=== PATIENT | male | born 1945 | race Caucasian/White ===

== ENCOUNTER 2017-05-30 13:53 | Inpatient (IN) | payer MEDICARE ==
[~2017-05-30 13:53] MED LIST: Bacitracin Zinc Ointment 30 gm TUBE ONE; Dexamethasone 20 MG/5 ML VIAL ONE; Glycopyrrolate 0.2 MG/ML 5 ML SYRINGE ONE; Lidocaine 1% PF 5 ML VIAL ONE; Lidocaine 1% w/Epinephrine 1:200K 30 ML VIAL ONE; Ondansetron HCl/PF 4 MG/2 ML Vial ONE; PROPOFOL 200 MG/20 ML VIAL ONE; Succinylcholine Chloride 20 MG/ML 10 ml SYRINGE FS ONE; Thrombin 5000 UNITS/5 ML VIAL ONE; ePHEDrine/0.9% NaCl/PF SYRINGE 50 mg/10 ml ONE
[2017-05-30] MEDS ORDERED: Fentanyl 100 MCG/2 ML VIAL ONE (14:17)
[2017-05-30] MEDS ORDERED: Morphine Sulfate 2 MG/ML SYRINGE SLOW IVP PRN (14:23)
[2017-05-30] MEDS ORDERED: Meperidine HCl/PF 25 MG/ML VIAL SLOW IVP PRN (14:23)
[2017-05-30] MEDS ORDERED: Promethazine HCl 25 MG/ML VIAL SLOW IVP PRN (14:23)
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
[2017-05-30] MEDS ORDERED: ePHEDrine/0.9% NaCl/PF SYRINGE 50 mg/10 ml ONE (15:20)
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
[2017-05-30 18:28] VITALS: BMI 35.4
[2017-05-30] MEDS ORDERED: Acetaminophen 325 MG TAB PO PRN (19:00)
[2017-05-30] MEDS ORDERED: Ondansetron HCl/PF 4 MG/2 ML Vial IVP PRN (19:00)
[2017-05-30] MEDS ORDERED: Dextrose 5% in Water 1,000 ML IV PRN (19:00)
[2017-05-30] MEDS ORDERED: Dextrose 50% Abboject 50 ML SYRINGE SLOW IVP PRN (19:00)
[2017-05-30] MEDS ORDERED: Docusate 100 MG CAP PO PRN (19:00)
[2017-05-30] MEDS ORDERED: diphenhydrAMINE 50 MG/ML VIAL IVP PRN (19:00)
[2017-05-30] MEDS ORDERED: Ondansetron ODT 4 MG TAB PO PRN (19:00)
[2017-05-30] MEDS ORDERED: Morphine 4 MG/ML VIAL SLOW IVP PRN ×2 (19:15)
[2017-05-30] MEDS: Sodium Chloride 0.9% 1,000 ML IV SCH (19:40)
[2017-05-30] MEDS: CEFAZOLIN/Water 2 GM/20 ML SYRINGE SLOW IVP SCH (20:34)
[2017-05-30] MEDS: hydrALAZINE 20 MG/ML VIAL SLOW IVP PRN (20:38)
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
[2017-05-30] MEDS ORDERED: Famotidine 20 MG TAB PO SCH (21:00)
[2017-05-30] MEDS ORDERED: Famotidine/PF 20 mg/2ml Vial SLOW IVP SCH (21:00)
[2017-05-30] MEDS ORDERED: Famotidine 40 MG/4 ML VIAL SLOW IVP SCH (21:00)
[2017-05-30] MEDS ORDERED: Morphine 2 MG/ML SYRINGE SLOW IVP PRN (21:22)
[2017-05-30] MEDS ORDERED: niCARdipine 20MG In NaCl 20 MG/200 ML BAG IVPB SCH (21:30)
[2017-05-30] MEDS ORDERED: Labetalol HCl 100 MG/20 ML VIAL SLOW IVP SCH (21:30)
[2017-05-31] MEDS: HYDROcodone/Acetaminophen 10/325 mg Tablet PO PRN ×3 (00:20→20:34)
[2017-05-31] MEDS: CEFAZOLIN/Water 2 GM/20 ML SYRINGE SLOW IVP SCH ×2 (04:04→11:43)
[2017-05-31 04:42] LABS: #Lymphocytes 2.3 thou/uL (1.20-3.40); #Monocytes 0.8 thou/uL (0.11-0.59); #Neutrophils 12.7 thou/uL (1.40-6.50); %Basophils 0.2 % (0.0-1.0); %Eosinophils 0.1 % (0.0-10.0); %Lymphocytes 14.8 % (21.0-51.0); %Monocytes 4.8 % (0.0-10.0); %Neutrophils 80.1 % (42.0-75.0); Hemoglobin 14.9 g/dL (14.0-18.0); Mean Corpuscular HGB CONC 34.2 g/dL (32.0-36.0); Mean Corpuscular Hemoglobin 31.4 pg (27.0-31.0); Mean Corpuscular Volume 91.9 fl (80.0-94.0); Mean Platelet Volume 7.5 fL (7.4-10.4); Platelet Count 233 thou/uL (130-400); RBC Distribution Width 11.6 % (11.5-14.5); Red Blood Cell (RBC) Count 4.74 mill/uL (4.70-6.10); White Blood Cell (WBC) Count 15.8 thou/uL (4.8-10.8)
[2017-05-31 04:57] LABS: Anion Gap 15 mmol/L (10-20); BUN (Urea Nitrogen) 13 mg/dL (8.4-25.7); Calc. Creatinine Clearance 114 mL/min (70-130); Calcium 9.4 mg/dL (7.8-10.44); Carbon Dioxide 21 mmol/L (23-31); Chloride 105 mmol/L (98-107); Estimated GFR-MDRD 77; Glucose 128 mg/dL (80-115); Magnesium 1.9 mg/dL (1.6-2.6); Phosphorus 3.5 mg/dL (2.3-4.7); Potassium 4.2 mmol/L (3.5-5.1); Sodium 137 mmol/L (136-145)
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
[2017-05-31] MEDS: Sodium Chloride 0.9% 1,000 ML IV SCH (08:18)
[2017-05-31] MEDS: Metoprolol Tartrate 25 MG TAB PO SCH ×2 (08:18→20:33)
[2017-05-31] MEDS ORDERED: Amlodipine 5 MG TAB PO SCH ×2 (09:00→10:30)
[2017-05-31] MEDS ORDERED: Famotidine 40 MG/4 ML VIAL SLOW IVP SCH (09:00)
--- NOTE | 2017-05-31 11:01 | PRG ---
DATE OF SERVICE: 05/31/2017 SUBJECTIVE: Mr. Woodard is 1 day status post feliz hole evacuation of a large subdural hematoma. Cli nically, he is neurologically intact. The plan will be to remove the subdural drain this morning and recommend transfer to the floor. If he is mobilizing well over the course of the day, he can be dis missed as early as later this afternoon. Our plan will be to follow up with him in the clinic in a 2 weeks' time frame.
--- NOTE | 2017-05-31 11:58 | PRG ---
DATE OF SERVICE: 05/31/2017 SUBJECTIVE: This is a 71-year-old man who is postoperative day #1, status post feliz hole evacuation of large left convexity subdural hematoma. The patient is awake and alert. His Alena coma scale h as remained at 15. He moves all extremities and answers questions appropriately. He reports adequat e pain control. He has had adequate urinary output overnight. OBJECTIVE: VITAL SIGNS: Currently includes blood pressure 156/75, pulse is 60, respiratory rate is 15, temperat ure is 98.0 degrees Fahrenheit, oxygen saturation is 98% on room air. HEENT: Reveals a scalp dressing which is intact, clean, and dry. Pupils are equal, round, and react ania to light and accommodation. NECK: He has no jugular venous distention noted. HEART: Reveals regular rate and rhythm, no murmurs or gallops auscultated. CHEST: Lungs are clear to auscultation bilaterally. His breathing is regular and unlabored. ABDOMEN: Soft, nontender, nondistended. EXTREMITIES: Reveals 2+ radial and pedal pulses bilaterally. No ankle edema is present. NEUROLOGIC: Reveals no focal deficits present. LABORATORY DATA: Pertinent laboratory findings today includes a CBC with 15,800 white blood cells, h emoglobin 14.9, hematocrit 43.5, platelet count is 233,000. Metabolic profile: Sodium 137, potassiu m is 4.2, chloride is 105, bicarbonate is 21, BUN 13, creatinine 0.97, glucose 128. Magnesium 1.9, p hosphorus is 3.5. IMPRESSION: Postoperative day #1, status post feliz hole evacuation of large left subdural hematoma, patient is neurologically normal. PLAN: Judge catheter will be discontinued. The patient will be saline locked and diet initiated. Activities will be initiated per physical and occupational therapy. The patient will be evaluated by Speech Pathology for cognitive evaluation. Should evaluation by PT, OT and Speech Pathology so indicate, PMNR will see the patient for possible inpatient rehabilitation. I have no reasons to think that this will be the case. Above findings and plan have been discussed with the patient who indicates understanding of the infor mation given. I have answered his questions.
--- NOTE | 2017-05-31 13:33 | PRG ---
DATE OF SERVICE: 05/31/2017 SUBJECTIVE: Mr. Woodard is now postop day #1 following a left-sided frontal feliz hole and subdural e vacuation. He looks to be doing extraordinarily well, has eaten and his head of the bed has come up. He is very alert and oriented x4 and I do not see that he has had any major troubles overnight othe r than some mild that he is battling hypertension. His CECILE drain from the feliz hole looks to have harmna ined only 30 mL and this is mostly tapered off. We will plan to go ahead and remove this at the beds dameon. He can ambulate and be transferred to the floor and from a neurosurgical standpoint as long as he is doing well later today. I think he is reasonable to be discharged at any point either this lux poncho or tomorrow morning with anticipated followup in 2 weeks in the outpatient clinics for postopmaurizio we will plan to see him then.
[2017-05-31] MEDS: Famotidine 20 MG TAB PO SCH (20:33)
[2017-05-31] MEDS ORDERED: diphenhydrAMINE 25 MG CAP PO PRN (21:05)
--- NOTE | 2017-06-01 02:23 | PRG ---
DATE OF SERVICE: 05/31/2017. SUBJECTIVE: Bob Woodard is a 71-year-old male postop day 1, status post subdural evacuation via bur r holes. The patient was recently moved from the ICU to the floor. He localized no complaints this evening. Pain has been controlled. OBJECTIVE: VITAL SIGNS: Reviewed and stable. The patient is somewhat hypertensive, but home medications have r ecently been given. GENERAL: The patient is resting in bed in no acute distress. Breathing is nonlabored. GCS is 15. NEUROLOGIC: No focal deficit is noted. ASSESSMENT AND PLAN: Documented in daily progress note. Continue care as ordered. Continue to [facility].
[2017-06-01] MEDS: hydrALAZINE 20 MG/ML VIAL SLOW IVP PRN ×2 (05:25→12:14)
--- NOTE | 2017-06-01 08:28 | PRG ---
DATE OF SERVICE: 06/01/2017 SUBJECTIVE: Mr. Woodard is now postoperative day #2 having undergone left-sided feliz hole placement for evacuation of acute on chronic subdural hematoma. The patient states that he is doing well today . He states that he continues to have some left-sided headache also, again it is improved today comp ared to when he was admitted. He has been up walking. He has tolerated regular diet, has urinated a nd his pain is controlled with oral medications. From our standpoint, he is at neurologic baseline, he is alert and oriented to person, place and time, and follows commands in all 4 extremities equally . He does have history of antiplatelet and anticoagulation therapy for stent placement 15 years ago. I suggest that he remain off these until cleared by Neurosurgery. At this time, the patient is sta ble for discharge from a neurosurgical standpoint. He should follow up as scheduled with Dr. Zepeda's team on an outpatient basis. The patient's incision is clean, dry, and intact and healing well. Ag ain, from a neurosurgical standpoint, the patient is stable for discharge.
[2017-06-01] MEDS: HYDROcodone/Acetaminophen 10/325 mg Tablet PO PRN ×2 (08:38→19:15)
[2017-06-01] MEDS: Metoprolol Tartrate 25 MG TAB PO SCH (08:40)
[2017-06-01] MEDS: Famotidine 20 MG TAB PO SCH (08:42)
[2017-06-01] MEDS ORDERED: Amlodipine 10 MG TAB PO SCH (09:00)
[2017-06-01 16:39] VITALS: BP 125/67; TEMP 98.1
[2017-06-01] MEDS ORDERED: Melatonin 3 MG TAB PO PRN (21:05)
--- NOTE | 2017-06-03 11:37 | OP ---
DATE OF PROCEDURE: 05/30/2017 SURGEON: Mike Zepeda M.D. INDUSTRIAL TECHNOLOGY EDUCATION TEACHER: Ellis Conteh PA-C. INDICATION: Prevent neurologic decline. DIAGNOSIS: Subdural hematoma. PROCEDURE: Left frontal feliz hole placement with evacuation of subdural hematoma. ANESTHESIA: General. TECHNIQUE: The patient was brought into the operating room and placed under general anesthesia. He was placed on the table in a supine position. A linear incision was planned over the left frontal re gion. This area was prepped and draped in the usual sterile fashion. Following an appropriate opera tive pause, the incision was created. A self-retaining retractor was placed. A single bur hole was placed. A cruciate incision was placed within the dura where there was immediate egress of substanti al subdural blood products under pressure. This was irrigated until it cleared. There was expansion of the brain. A red rubber tube was then placed within the subdural space and brought out through a separate puncture site within the skin. The wound was closed in anatomic layers and a pressure dres sing was applied. There were no known procedural complications.
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
== END 2017-06-01 19:37 | disposition home or self-care (01) | DRG 25 ==
LOC: ERS 13:53 → SDC/OP 14:14 → CCU 17:38 → SJJU 05-31 13:39
PROVIDERS: ADMIT Surgery; ATTEND Surgery
PROC: 009430Z Drainage of Intracranial Subdural Space with Drainage Device, Percutaneous Approach (ICD-10-PCS; principal; 2017-05-30)
DX: S06.5X0A Traumatic subdural hemorrhage without loss of consciousness, initial encounter (principal); G93.5 Compression of brain; E78.5 Hyperlipidemia, unspecified; R40.2412 Glasgow coma scale score 13-15, at arrival to emergency department; I10 Essential (primary) hypertension; I25.10 Atherosclerotic heart disease of native coronary artery without angina pectoris; F32.9 Major depressive disorder, single episode, unspecified; V49.49XA Driver injured in collision with other motor vehicles in traffic accident, initial encounter
CPT/HCPCS: 36415; 71045; 80048; 83735; 84100; 85025; G0390; G8978-GP-CJ; G8979-GP-CH; G9168-GN-CH; G9169-GN-CH; G9170-GN-CH; J0360; J1100; J1200; J2001; J2405; J2704; J3010

== ENCOUNTER 2017-07-16 10:32 | Outpatient (CLI) | payer MEDICARE ==
--- NOTE | 2017-07-16 13:19 | CT ---
CT BRAIN WITHOUT CONTRAST: HISTORY: Follow-up subdural hemorrhage. COMPARISON: 05/30/2017 TECHNIQUE: Multiple contiguous axial images were obtained in a CT of the brain without contrast. FINDINGS: There is a left-sided subdural hematoma, which is isodense. This measures approximately 1.1 cm in gr eatest thickness, which has decreased in size compared to the prior examination. The shift of the mi dline to the right, previously seen, has improved, with minimal shift of the midline to the right. N o intraventricular hemorrhage or hydrocephalus is seen. A bur hole is seen in the left frontal calvarium. The visualized paranasal sinuses and mastoid air c ells are well aerated. IMPRESSION: Smaller but persistent left frontal subdural hematoma. POS: [facility]
== END 2017-07-16 10:33 | disposition home or self-care (01) ==
LOC: TBSIIMAG 10:32
PROVIDERS: ATTEND Neurological Surgery
DX: S06.5X0A Traumatic subdural hemorrhage without loss of consciousness, initial encounter (principal)
CPT/HCPCS: 70450

== ENCOUNTER 2017-12-20 13:31 | Day surgery (SDC) | payer MEDICARE ==
[2017-12-19 14:59] VITALS: BMI 35.4
[2017-12-20] MEDS ORDERED: CEFAZOLIN/Water 2 GM/20 ML SYRINGE ONE (13:55)
[2017-12-20 14:18] LABS: Hemoglobin 15.9 g/dL (14.0-18.0); Mean Corpuscular Hemoglobin 30.6 pg (27.0-31.0); Mean Corpuscular Volume 87.4 fL (78.0-98.0); Platelet Count 236 thou/uL (130-400); RBC Distribution Width 11.4 % (11.5-14.5); Red Blood Cell (RBC) Count 5.18 mill/uL (4.70-6.10); White Blood Cell (WBC) Count 10.2 thou/uL (4.8-10.8)
[2017-12-20 14:37] LABS: Anion Gap 12 mmol/L (10-20); BUN (Urea Nitrogen) 12 mg/dL (8.4-25.7); Calc. Creatinine Clearance 119 mL/min (70-130); Calcium 9.7 mg/dL (7.8-10.44); Carbon Dioxide 24 mmol/L (23-31); Chloride 107 mmol/L (98-107); Estimated GFR-MDRD 85; Glucose 108 mg/dL (80-115); Potassium 4.5 mmol/L (3.5-5.1); Sodium 138 mmol/L (136-145)
[2017-12-20] MEDS ORDERED: ePHEDrine/0.9% NaCl/PF SYRINGE 50 mg/10 ml ONE (15:47)
[2017-12-20] MEDS ORDERED: PROPOFOL 200 MG/20 ML VIAL ONE (15:47)
[2017-12-20] MEDS ORDERED: Lidocaine 1% PF 5 ML VIAL ONE (15:47)
[2017-12-20] MEDS ORDERED: Ondansetron HCl/PF 4 MG/2 ML Vial ONE (15:47)
[2017-12-20] MEDS ORDERED: Dexamethasone 20 MG/5 ML VIAL ONE (15:47)
[2017-12-20] MEDS ORDERED: Bacitracin Zinc Ointment 30 gm TUBE ONE ×2 (16:08→16:44)
[2017-12-20] MEDS ORDERED: Betamet Acet/Betamet Na Ph 30 MG/5 ML VIAL ONE (16:08)
[2017-12-20] MEDS ORDERED: Bupivacaine PF 0.5% 30 ML VIAL ONE ×2 (16:08→16:44)
[2017-12-20] MEDS ORDERED: Sodium Chloride 0.9% 0 ML ONE (16:11)
[2017-12-20] MEDS ORDERED: Fentanyl 100 MCG/2 ML VIAL ONE ×2 (16:38→17:25)
[2017-12-20] MEDS ORDERED: Sodium Chloride 0.9% 10 ML ONE (16:44)
[2017-12-20] MEDS ORDERED: Ketorolac Tromethamine 30 MG/ML VIAL ONE (18:17)
--- NOTE | 2017-12-22 02:26 | OP ---
DATE OF PROCEDURE: 12/20/2017 PREOPERATIVE DIAGNOSES: Left index finger wound with tendon involvement specifically extensor tendon , extensor indicis proprius to the index finger over the joint. POSTOPERATIVE DIAGNOSES: 1. Left index finger wound with tendon involvement specifically extensor tendon, extensor pollicis t o the index finger over the joint. 2. Open joint to complete extensor digitorum communis to the index finger laceration with mild retra ction. 3. Partial 25% laceration of the extensor indicis proprius at index finger over the joint. 4. Open joint. PROCEDURES PERFORMED: 1. [place] [address] [place] down to and including the joint with irrigati on. 2. Repair of extensor indicis proprius tendon 100% laceration. 3. Repair of extensor digitorum communis to the index finger, 100% laceration. 4. Repair of extensor indicis proprius, 25% laceration at the level of the metacarpophalangeal joint , index finger, left, TOURNIQUET TIME: 36 minutes. COMPLICATIONS: None. ESTIMATED BLOOD LOSS: 10 mL ANESTHESIA: General LMA technique augmented by 20 mL 0.5% percent Marcaine, 10 given before incision and then 10 given after. INDICATIONS: The patient came to clinic approximately 3 days ago with pain on resisted extension, la ceration with a history of the emergency room doc tendon. For this reason, operative intervent ion was indicated. DESCRIPTION OF PROCEDURE: After successful general endotracheal anesthesia, the arm was prepped and draped. Dr. Acevedo is the the operating surgeon. After the time-out, we injected the patient alre michael anesthetized with general LMA technique with 20 mL of 0.5% Marcaine, 10 immediately before the in cision. We removed his previous sutures, debrided the wound edges, and then explored the tendon lace ration when we saw the 50% laceration with retraction of the extensor digitorum communis and debrided the index finger 25% laceration of the extensor indicis proprius, we freshened the edges with 15 krishan de resection of the tendon edges, cleaned with a curette of the tendon edges of the proximal lacerate d extensor indicis proprius. I then used a [id number] 4-0 nylon to repair each without evidence of anesthetic or operative complication. Before we repair the tendon, we inspected the joint, found that the joint had 3 mm opened bulb syringe in and with two bulb syringes simultaneously, we were able to irrigate the joint with 2 liter s normal saline with bacitracin powder inside. After the interrupted 4-0 repairs, extensor digitorum communis, the extensor indicis proprius with th e same suture technique, was repaired both with the thumb and the index finger in 10 degrees hyperext ension of MP joint. It remained in position and we released the tourniquet. Obtaining hemostasis, c losed the laceration with 4-0 nylon interrupted mattress pattern, again, the remainder of 10 mL injec tion and lupe-incisional block. Bulky dressing was applied with a splint having the digits and 10 de grees hyperextension of MP joint in short arm fashion with the thumb free. He left the operating ascencion m without evidence of anesthetic or operative complication.
== END 2017-12-20 20:00 | disposition home or self-care (01) ==
LOC: SDC 13:31
PROVIDERS: ATTEND Orthopaedic Surgery Hand Surgery
PROC: 0LQ80ZZ Repair Left Hand Tendon, Open Approach (ICD-10-PCS; principal; 2017-12-20)
PROC: 0LQ80ZZ Repair Left Hand Tendon, Open Approach (ICD-10-PCS; 2017-12-20)
PROC: 0LQ80ZZ Repair Left Hand Tendon, Open Approach (ICD-10-PCS; 2017-12-20)
DX: S61.211A Laceration without foreign body of left index finger without damage to nail, initial encounter (principal); G47.30 Sleep apnea, unspecified; E78.00 Pure hypercholesterolemia, unspecified; Z79.82 Long term (current) use of aspirin; Z79.899 Other long term (current) drug therapy
CPT/HCPCS: 26418 ×3; 80048; 85027; 96374 ×2; C1713; 36415; A4216; J0702; J1100; J1885; J2001; J2405; J2704; J3010; J3490; S0020

== ENCOUNTER 2018-12-18 05:45 | Inpatient (IN) | payer MEDICARE, BC ==
[2018-12-08 14:49] VITALS: BMI 34.7
[2018-12-18] MEDS ORDERED: Lidocaine 1% (PF) 30 ML VIAL ONE (06:27)
[2018-12-18] MEDS ORDERED: Midazolam HCl 2 mg/2 ml Vial ONE (07:19)
[2018-12-18] MEDS ORDERED: Fentanyl 100 MCG/2 ML VIAL ONE (07:19)
[2018-12-18] MEDS ORDERED: Heparin 10,000 UNITS/1 ML VIAL ONE (07:19)
[2018-12-18 07:21] LABS: Cardiac Risk 2.7 (Less than 4.5)
[2018-12-18] MEDS ORDERED: metFORMIN 500 MG TAB PO SCH (08:00)
[2018-12-18] MEDS ORDERED: Protamine Sulfate 50 MG/5 ML VIAL ONE (08:09)
[2018-12-18] MEDS ORDERED: Acetaminophen/Codeine 30-300mg Tablet PO PRN ×2 (08:24)
[2018-12-18] MEDS ORDERED: Nitroglycerin 0.4 MG TAB (25 Tab Bottle) SL PRN (08:24)
[2018-12-18] MEDS ORDERED: Sodium Chloride 0.9% 200 ML IV PRN (08:24)
[2018-12-18] MEDS ORDERED: Sodium Chloride 0.9% 1,000 ML IV SCH (08:30)
[2018-12-18] MEDS ORDERED: Venlafaxine HCl XR 75 MG CAP PO SCH (09:00)
[2018-12-18] MEDS ORDERED: Iopamidol 370 76% 100 ML VIAL ONE (10:27)
[2018-12-18] MEDS ORDERED: Iopamidol 370 76% 50 ML VIAL FS ONE (10:27)
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
[2018-12-18 13:29] LABS: Hemoglobin A1c 5.7 % (4.0-6.0)
[2018-12-18] MEDS ORDERED: Communication Order-Pharmacy FS SCH (13:30)
[2018-12-18] MEDS ORDERED: ALPRAZolam 0.5 MG TAB PO PRN (13:52)
[2018-12-18] MEDS: Aspirin 325 MG TAB PO SCH (15:53)
[2018-12-18] MEDS: Ezetimibe 10 MG TAB PO SCH (15:57)
[2018-12-18] MEDS: Amlodipine 5 MG TAB PO SCH (15:57)
[2018-12-18] MEDS: Fluticasone Propionate Nasal Spray 16 gm Bottle NASAL SCH (15:58)
[2018-12-18] MEDS: Loratadine 10 MG TAB PO SCH (15:58)
[2018-12-18] MEDS: Multivitamin W/ Minerals 1 TAB PO SCH (15:58)
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
[2018-12-18] MEDS ORDERED: Ondansetron PF 4 MG/2 ML Vial IVP PRN (20:28)
[2018-12-18] MEDS ORDERED: Ondansetron ODT 4 MG TAB PO PRN (20:28)
[2018-12-18] MEDS ORDERED: Rosuvastatin 20 MG TAB PO SCH (21:00)
--- NOTE | 2018-12-18 21:40 | CON ---
DATE OF CONSULTATION: PRIMARY CARE DOCTOR: Klaus Evans MD CODE STATUS: Full code. TIME OF EVALUATION: 8 p.m. CHIEF COMPLAINT: Positive PET scan needing CABG. HISTORY OF PRESENT ILLNESS: This is a 73-year-old male patient known by Dr. Olguin, who has been treated and followed for coronary artery disease with a previous stent placement. The patient underwent a cardiac PET scan which revealed moderate [id number] anteroseptal ischemia with recommendations for cardiac catheterization. For that reason, the patient was placed in the hospital. Dr. Altman has been consulted and the patient most likely to go for surgery tomorrow in the morning. By the time of presentation, the patient reported not having any significant symptoms. PAST MEDICAL HISTORY: Hypertension, hypercholesterolemia, coronary artery disease, status post stenting, history of spontaneous subdural hematoma with surgical drainage that was in 2018. PAST SURGICAL HISTORY: Gastric banding, bilateral total knee replacement, coronary artery disease stenting, left frontal subdural hematoma in May 2017. MEDICATIONS: The patient is on: 1. Norvasc. 2. Zetia. 3. Crestor. 4. Aspirin. 5. Accupril. 6. Xanax. 7. Metoprolol. 8. Metformin. 9. Seroquel. 10. Pristiq. ALLERGIES: NONE. SOCIAL HISTORY: The patient has smoked two packs per day. He stopped smoking in 1975. Alcohol occasionally. FAMILY HISTORY: The patient has a mother with coronary artery disease, father with stroke. REVIEW OF SYSTEMS: CONSTITUTIONAL: No fever, chills, or generalized weakness. RESPIRATORY: No cough, sputum production, or shortness of breath. CARDIOVASCULAR: No chest pain or palpitation. GASTROINTESTINAL: No nausea, vomiting, diarrhea, or abdominal pain. LEAD CUSTODIAN: No dizziness, headache, or feeling lightheaded. GENITOURINARY: No burning on urination. EXTREMITIES: No leg swelling. PHYSICAL EXAMINATION: VITAL SIGNS: On presentation, the patient had blood pressure 158/82 with heart rate of 60. No fever. GENERAL APPEARANCE: The patient is alert, oriented, not in acute distress. HEENT: Eyes; normal conjunctiva. Anicteric. No JVD. RESPIRATORY: Bilateral air entry. No rales. No wheezing. Symmetric expansion. CARDIOVASCULAR: Normal rate, regular rhythm. No murmurs. No gallop. No edema. ABDOMEN: Soft. Normal bowel sounds. MUSCULOSKELETAL: Baseline range of motion and strength. SKIN: Warm, intact. No pallor. No rash. No redness. Capillary refill seems to be intact. NEUROLOGIC: No evidence of any new focal weakness. Cranial nerves seem to be intact. PSYCH: The patient is in good mood. No anxiety. Optimal judgment. 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 There is a previous stent in the proximal RCA mid-subsection. Lesion on the proximal RCA is 80% stenosis, 5 mm length. Most recent labs for this patient were done on 12/08/2018; white count 10.1, hemoglobin 15, MCV 92, platelet count 218. Coagulation; activated clotting time, seconds. Last chemistry done was on December 08, sodium 140, potassium 4.4, chloride 106, carbon dioxide 25, anion gap 13, BUN 9, creatinine 0.7, GFR greater than 90, glucose 75, hemoglobin A1c 5.7, calcium 9.8. LFTs were negative. Albumin 4.4. Lipid panel is normal. ASSESSMENT AND PLAN: The patient has been admitted by Dr. Olguin since the patient needs a CABG in the morning given finding from Cardiology workup. Dr. Altman will be doing the surgery. Dr. Olguin will be following the patient from Cardiology. 1. Uncontrolled hypertension, systolic blood pressure 158. Reconcile home medications, adjust as needed. 2. Obesity. It is recommended for the patient to lose weight. 3. History of obstructive sleep apnea. 4. Hypercholesteremia. Lipid panel is normal, reconcile home medications. Low-cholesterol diet is advised. Job ID: [id number]
[2018-12-19 05:30] LABS: #Eosinphils 0.4 thou/uL (0.0-0.7); #Lymphocytes 2.7 thou/uL (1.20-3.40); #Monocytes 0.7 thou/uL (0.11-0.59); #Neutrophils 3.8 thou/uL (1.40-6.50); %Basophils 0.5 % (0.0-1.0); %Eosinophils 5.3 % (0.0-10.0); %Lymphocytes 35.3 % (21.0-51.0); %Monocytes 9.2 % (0.0-10.0); %Neutrophils 49.8 % (42.0-75.0); Hemoglobin 14.6 g/dL (14.0-18.0); Mean Corpuscular HGB CONC 33.1 g/dL (32.0-36.0); Mean Corpuscular Hemoglobin 30.7 pg (27.0-31.0); Mean Corpuscular Volume 92.6 fL (78.0-98.0); Mean Platelet Volume 8.1 fL (7.4-10.4); Platelet Count 190 thou/uL (130-400); RBC Distribution Width 11.9 % (11.5-14.5); Red Blood Cell (RBC) Count 4.76 mill/uL (4.70-6.10); White Blood Cell (WBC) Count 7.7 thou/uL (4.8-10.8)
[2018-12-19 05:52] LABS: Anion Gap 11 mmol/L (10-20); BUN (Urea Nitrogen) 11 mg/dL (8.4-25.7); Calc. Creatinine Clearance 119 mL/min (70-130); Calcium 9.4 mg/dL (7.8-10.44); Carbon Dioxide 27 mmol/L (23-31); Chloride 105 mmol/L (98-107); Estimated GFR-MDRD 88; Glucose 111 mg/dL (83-110); Potassium 4.6 mmol/L (3.5-5.1); Sodium 138 mmol/L (136-145)
[2018-12-19] MEDS: Aspirin 325 MG TAB PO SCH (08:00)
[2018-12-19] MEDS: Amlodipine 5 MG TAB PO SCH (08:00)
[2018-12-19] MEDS: Ezetimibe 10 MG TAB PO SCH (08:01)
[2018-12-19] MEDS: Multivitamin W/ Minerals 1 TAB PO SCH (08:01)
[2018-12-19] MEDS: Loratadine 10 MG TAB PO SCH (08:01)
[2018-12-19] MEDS: Fluticasone Propionate Nasal Spray 16 gm Bottle NASAL SCH (08:01)
[2018-12-19] MEDS ORDERED: ceFAZolin Sodium (SDC) 2 GM/100 ML BAG ONE (10:53)
[2018-12-19] MEDS ORDERED: Albumin 5% 500 ML ONE (12:08)
[2018-12-19] MEDS ORDERED: Fentanyl 250 MCG/5 ML VIAL ONE (12:13)
[2018-12-19] MEDS ORDERED: Midazolam HCl 5 mg/5 ml Vial ONE (12:13)
[2018-12-19] MEDS ORDERED: Heparin 10,000 UNITS/1 ML VIAL 30,000 UNITS in Sodium Chloride 0.9% 1,000 ML FS SCH (12:15)
[2018-12-19] MEDS ORDERED: Phenylephrine HCL 10 MG/ML VIAL ONE (12:24)
--- NOTE | 2018-12-19 15:30 | PDOC.EVN ---
Event Note - Event Note Event Note: Not seen Patient in OR for CABG.
[2018-12-19] MEDS ORDERED: Protamine Sulfate 50 MG/5 ML VIAL ONE (15:36)
[2018-12-19] MEDS ORDERED: Cardioplegic Soln 1,000 ML BAG ONE (15:48)
[2018-12-19] MEDS ORDERED: DOPamine 400 MG/10 ML VIAL ONE (15:48)
[2018-12-19] MEDS ORDERED: Rocuronium Bromide 10 MG/ML (10ML VIAL) ONE (15:48)
[2018-12-19] MEDS ORDERED: Ketorolac Tromethamine 30 MG/ML VIAL ONE (15:48)
[2018-12-19] MEDS ORDERED: Papaverine 60 MG/2 ML VIAL ONE (15:48)
[2018-12-19] MEDS ORDERED: Mannitol 12.5 GM/50 ML ONE (15:48)
[2018-12-19] MEDS ORDERED: Calcium Chloride 1 GM/10 ML Abboject SYRINGE ONE (15:48)
[2018-12-19] MEDS ORDERED: PROPOFOL 200 MG/20 ML VIAL ONE (15:48)
[2018-12-19] MEDS ORDERED: Nitroglycerin 50 MG/250 ML BOT ONE (15:48)
[2018-12-19] MEDS ORDERED: Glycopyrrolate 0.2 MG/ML 5 ML SYRINGE ONE (15:48)
[2018-12-19] MEDS ORDERED: Heparin 5,000 UNITS/ML VIAL ONE (15:48)
[2018-12-19] MEDS ORDERED: Heparin 30,000 units/30 ml VIAL ONE (15:48)
[2018-12-19] MEDS ORDERED: ePHEDrine 50 MG/ML VIAL ONE (15:48)
[2018-12-19] MEDS ORDERED: Lidocaine 2% PF 100 mg/5 ml Syringe ONE (15:48)
[2018-12-19] MEDS ORDERED: Sodium Bicarb 50 MEQ/50 ML VIAL ONE (15:48)
[2018-12-19] MEDS ORDERED: Aminocaproic Acid 5 GM/20 ML VIAL ONE (15:48)
[2018-12-19] MEDS ORDERED: Bisacodyl 5 MG TAB PO PRN (16:28)
[2018-12-19] MEDS ORDERED: Fentanyl 100 MCG/2 ML VIAL SLOW IVP PRN (16:28)
[2018-12-19] MEDS ORDERED: niCARdipine 25 MG in Sodium Chloride 0.9% 250 ML 240 ML IVPB PRN (16:28)
[2018-12-19] MEDS ORDERED: Mag-Al 1200 mg/1200 mg/30 ML UDCUP PO PRN (16:28)
[2018-12-19] MEDS ORDERED: Ondansetron PF 4 MG/2 ML Vial IVP PRN (16:28)
[2018-12-19] MEDS ORDERED: hydrALAZINE 20 MG/ML VIAL SLOW IVP PRN (16:28)
[2018-12-19] MEDS ORDERED: Nitroglycerin 50 MG/250 ML BOT 250 ML IVPB PRN (16:28)
[2018-12-19] MEDS ORDERED: Acetaminophen 325 MG TAB PO PRN (16:28)
[2018-12-19] MEDS ORDERED: Post-Op Insulin Drip Protocol IVPB ONE (16:28)
[2018-12-19] MEDS ORDERED: Norepinephrine 8 MG/0.9% NS 250 ML IVPB PRN (16:28)
[2018-12-19] MEDS ORDERED: Morphine 4 MG/ML VIAL SLOW IVP PRN (16:28)
[2018-12-19] MEDS ORDERED: DOPamine 400 MG/D5W 250 ML 250 ML IVPB PRN (16:28)
[2018-12-19] MEDS ORDERED: Promethazine HCl 25 MG/ML VIAL IM PRN (16:28)
[2018-12-19] MEDS ORDERED: Potassium Chloride 20 MEQ/100 ML PREMIX BAG IVPB PRN (16:28)
[2018-12-19] MEDS ORDERED: Bisacodyl 10 MG SUPP PR PRN (16:28)
[2018-12-19] MEDS ORDERED: Guaifenesin DM 100-10/5 ML UDCUP PO PRN (16:28)
[2018-12-19] MEDS ORDERED: Hetastarch 6% 500 ML 500 ML IVPB PRN (16:28)
[2018-12-19] MEDS ORDERED: Magnesium 2 GM/50 ML 2 GM in Premix Bag 1 BAG IVPB SCH (16:45)
[2018-12-19] MEDS ORDERED: Dextrose 5% in Water 1,000 ML IV PRN (16:59)
[2018-12-19] MEDS ORDERED: Dextrose 50% Abboject 50 ML SYRINGE SLOW IVP PRN (16:59)
[2018-12-19] MEDS ORDERED: HUMULIN R 100 UNITS in Sodium Chloride 0.9% 100 ML IVPB SCH (16:59)
[2018-12-19] MEDS: Lactated Ringer's 1,000 ML IV SCH (17:00)
--- NOTE | 2018-12-19 17:05 | RAD ---
EXAM: CHEST ONE VIEW HISTORY: Post open heart surgery. COMPARISON: 12/08/2018 FINDINGS: There has been interval postsurgical changes related to CABG. Mediastinal drains and left-sided thora costomy tube are noted in place. A right subclavian central venous catheter is also noted in place with tip overlying the expected location of the right atrium. Cardiac silhouette is magnified by projection. Pulmonary vasculature is within normal limits. There i s slight increased density in the left hilar region, and the mediastinum also appears mildly prominent; however, these findings are likely postsurgical in origin. Continued follow-up is suggeste d. No pneumothorax is identified. Vascular calcifications are present in the thoracic aorta. Metallic anchor screws again overlie the right humeral head. IMPRESSION: 1. Interval postsurgical changes related to CABG with lines and tubes in place. No pneumothorax is se en. 2. Prominence of the mediastinum likely attributable to recent postsurgical changes.
[2018-12-19] MEDS: Fentanyl 100 MCG/2 ML VIAL SLOW IVP PRN ×2 (17:07→21:30)
[2018-12-19 17:11] LABS: #Basophils 0.1 thou/uL (0.0-0.2); #Eosinphils 0.2 thou/uL (0.0-0.7); #Monocytes 1.2 thou/uL (0.11-0.59); #Neutrophils 13.7 thou/uL (1.40-6.50); %Basophils 0.6 % (0.0-1.0); %Lymphocytes 16.7 % (21.0-51.0); %Monocytes 6.4 % (0.0-10.0); %Neutrophils 75.3 % (42.0-75.0); Hemoglobin 12.5 g/dL (14.0-18.0); Mean Corpuscular HGB CONC 34.1 g/dL (32.0-36.0); Mean Corpuscular Hemoglobin 31.6 pg (27.0-31.0); Mean Corpuscular Volume 92.5 fL (78.0-98.0); Platelet Count 167 thou/uL (130-400); RBC Distribution Width 11.8 % (11.5-14.5); Red Blood Cell (RBC) Count 3.94 mill/uL (4.70-6.10); White Blood Cell (WBC) Count 18.1 thou/uL (4.8-10.8)
[2018-12-19 17:16] LABS: INR-International Normal Ratio 1.3; PTT 26.7 SEC (22.9-36.1); Prothrombin Time 16.1 SEC (12.0-14.7)
[2018-12-19 17:30] LABS: Anion Gap 10 mmol/L (10-20); BUN (Urea Nitrogen) 11 mg/dL (8.4-25.7); Calc. Creatinine Clearance 134 mL/min (70-130); Calcium 8.5 mg/dL (7.8-10.44); Carbon Dioxide 23 mmol/L (23-31); Chloride 112 mmol/L (98-107); Estimated GFR-MDRD Greater than 90; Glucose 154 mg/dL (83-110); Potassium 4.4 mmol/L (3.5-5.1); Sodium 141 mmol/L (136-145)
[2018-12-19] MEDS ORDERED: Ketorolac Tromethamine 15 MG/ML VIAL IVP SCH (18:00)
[2018-12-19] MEDS: Ketorolac Tromethamine 30 MG/ML VIAL IVP SCH ×2 (18:05→23:48)
[2018-12-19] MEDS: CEFAZOLIN 2 GM in Sodium Chloride 0.9% 100 ML IVPB SCH (18:17)
[2018-12-19] MEDS ORDERED: Famotidine/PF 20 mg/2ml Vial SLOW IVP SCH (21:00)
[2018-12-19 22:26] LABS: Hemoglobin 13.5 g/dL (14.0-18.0)
[2018-12-19 22:42] LABS: Potassium 4.6 mmol/L (3.5-5.1)
[2018-12-20] MEDS: CEFAZOLIN 2 GM in Sodium Chloride 0.9% 100 ML IVPB SCH ×2 (02:01→13:13)
[2018-12-20] MEDS: HYDROcodone/Acetaminophen 5/325 mg Tablet PO PRN ×3 (04:50→22:39)
[2018-12-20 05:32] LABS: #Basophils 0.1 thou/uL (0.0-0.2); #Lymphocytes 1.5 thou/uL (1.20-3.40); #Monocytes 1.2 thou/uL (0.11-0.59); #Neutrophils 12.1 thou/uL (1.40-6.50); %Basophils 0.3 % (0.0-1.0); %Eosinophils 0.3 % (0.0-10.0); %Monocytes 8.2 % (0.0-10.0); %Neutrophils 81.2 % (42.0-75.0); Hemoglobin 13.2 g/dL (14.0-18.0); Mean Corpuscular HGB CONC 34.4 g/dL (32.0-36.0); Mean Corpuscular Hemoglobin 31.8 pg (27.0-31.0); Mean Corpuscular Volume 92.5 fL (78.0-98.0); Mean Platelet Volume 8.7 fL (7.4-10.4); Platelet Count 168 thou/uL (130-400); RBC Distribution Width 11.9 % (11.5-14.5); Red Blood Cell (RBC) Count 4.14 mill/uL (4.70-6.10); White Blood Cell (WBC) Count 14.9 thou/uL (4.8-10.8)
[2018-12-20 05:53] LABS: Anion Gap 13 mmol/L (10-20); BUN (Urea Nitrogen) 14 mg/dL (8.4-25.7); Calc. Creatinine Clearance 136 mL/min (70-130); Calcium 8.6 mg/dL (7.8-10.44); Carbon Dioxide 22 mmol/L (23-31); Chloride 109 mmol/L (98-107); Estimated GFR-MDRD Greater than 90; Glucose 120 mg/dL (83-110); Potassium 4.5 mmol/L (3.5-5.1); Sodium 139 mmol/L (136-145)
[2018-12-20] MEDS: Lactated Ringer's 1,000 ML IV SCH (06:02)
[2018-12-20] MEDS: Ketorolac Tromethamine 30 MG/ML VIAL IVP SCH ×4 (06:02→23:18)
[2018-12-20] MEDS ORDERED: Loratadine 10 MG TAB PO PRN (07:17)
[2018-12-20] MEDS ORDERED: HUMULIN R 100 UNITS in Sodium Chloride 0.9% 100 ML IVPB SCH (07:36)
[2018-12-20] MEDS ORDERED: Dextrose 50% Abboject 50 ML SYRINGE SLOW IVP PRN (07:36)
[2018-12-20] MEDS ORDERED: Insulin Regular 300 UNITS/3 ML VIAL SC PRN (07:36)
[2018-12-20] MEDS ORDERED: Dextrose 5% in Water 1,000 ML IV PRN (07:36)
--- NOTE | 2018-12-20 08:05 | RAD ---
CHEST 1 VIEW Date: 12/20/18 INDICATION: Status post open heart surgery. COMPARISON: Prior exam dated 12/19/18. FINDINGS: Left costophrenic angle is excluded. No definite pneumothorax is evident. Right subclavian central ve nous catheter is stable. Partial visualization of left-sided thoracostomy tube is unchanged. Mild car diomegaly and pulmonary vascular congestion remain. Osseous structures are unchanged. IMPRESSION: 1. Stable cardiomegaly with pulmonary vascular congestion. 2. Left-sided thoracostomy tube and right subclavian central venous catheter. POS: BH
[2018-12-20] MEDS ORDERED: Insulin Glargine 6 UNITS in Pre-Filled Syringe 1 EACH SC SCH (08:30)
[2018-12-20] MEDS: Ezetimibe 10 MG TAB PO SCH (08:34)
[2018-12-20] MEDS: Fluticasone Propionate Nasal Spray 16 gm Bottle NASAL SCH (08:35)
[2018-12-20] MEDS ORDERED: Aspirin Chewable 81 MG TAB PO SCH ×2 (09:00→11:00)
[2018-12-20] MEDS ORDERED: Aspirin 325 mg Enteric Coated Tablet PO SCH (09:00)
[2018-12-20] MEDS ORDERED: Mag-Al 1200 mg/1200 mg/30 ML UDCUP PO PRN (09:13)
[2018-12-20] MEDS ORDERED: Zolpidem Tartrate 5 MG TAB PO PRN (09:13)
[2018-12-20] MEDS ORDERED: Guaifenesin DM 100-10/5 ML UDCUP PO PRN (09:13)
[2018-12-20] MEDS ORDERED: ALPRAZolam 0.25 MG TAB PO PRN (09:13)
[2018-12-20] MEDS ORDERED: Milk Of Magnesia 30 ML UDCUP PO PRN (09:13)
[2018-12-20] MEDS ORDERED: Artificial Tears 18 DROP/0.9 ML EA EYE PRN (09:13)
[2018-12-20] MEDS ORDERED: diphenhydrAMINE 25 MG CAP PO PRN (09:13)
[2018-12-20] MEDS ORDERED: Mineral Oil ENEMA PR PRN (09:13)
[2018-12-20] MEDS ORDERED: Bisacodyl 5 MG TAB PO PRN (09:13)
[2018-12-20] MEDS ORDERED: Nitroglycerin 0.4 MG TAB (25 Tab Bottle) SL PRN (09:13)
[2018-12-20] MEDS ORDERED: Furosemide 40 MG/4 ML VIAL SLOW IVP SCH (09:13)
[2018-12-20] MEDS ORDERED: Bisacodyl 10 MG SUPP PR PRN (09:13)
[2018-12-20] MEDS: Famotidine 20 MG TAB PO SCH ×2 (11:06→20:34)
--- NOTE | 2018-12-20 12:20 | PDOC.HOSPP ---
- Subjective Subjective: Patient seen and examined. No new complaints. No overnight events today chest tube removed - Objective Vital Signs & Weight: Vital Signs (12 hours) Temp Pulse Resp BP Pulse Ox 12/20/18 10:36 98.8 F 70 16 139/65 96 12/20/18 08:00 98.5 F 12/20/18 07:53 94 L 12/20/18 07:40 94 L 12/20/18 03:00 98.4 F Weight Weight 236 lb 12.423 oz Most Recent Monitor Data Heart Rate from ECG 66 NIBP 113/59 NIBP BP-Mean 77 Respiration from ECG 18 SpO2 93 I&O: 12/19/18 12/20/18 12/21/18 06:59 06:59 06:59 Intake Total 480 2093 307.4 Output Total 1100 910 132 Balance -620 1183 175.4 Result Diagrams: 12/20/18 04:40 12/20/18 04:40 Additional Labs: Accuchecks 12/20/18 12/20/18 12/20/18 11:15 08:18 07:40 POC Glucose 103 124 H 126 H 12/20/18 12/20/18 12/20/18 06:12 04:43 02:02 POC Glucose 139 H 118 H 113 H 12/19/18 12/19/18 12/19/18 23:50 21:42 20:30 POC Glucose 125 H 125 H 119 H 12/19/18 12/19/18 12/19/18 17:01 16:19 14:28 POC Glucose 152 H 137 H 111 H 12/19/18 13:05 POC Glucose 84 Radiology Reviewed by me: Yes (chest xray reviewed) EKG Reviewed by me: Yes ROS - Review of Systems All systems: All other ROS were reviewed and found negative. Constitutional: denies: fever, chills, sweats, weakness, malaise, other ENT: denies: ear pain, ear discharge, nose pain, nose discharge, nose congestion , mouth pain, mouth swelling, throat pain, throat swelling, other Respiratory: denies: cough, dry, shortness of breath, hemoptysis, SOB with excertion, pleuritic pain, sputum, wheezing, other Cardiovascular: denies: chest pain, palpitations, orthopnea, paroxysmal noc. dyspnea, edema, light headedness, other Gastrointestinal: denies: nausea, vomitting, abdominal pain, diarrhea, constipation, melena, hematochezia, other Genitourinary: denies: dysuria, frequency, incontinence, hematuria, retention, other Musculoskeletal: denies: neck pain, shoulder pain, arm pain, back pain, hand pain, leg pain, foot pain, other Skin: denies: rash, lesions, marlene, bruising, other - Medication Medications: Active Medications Generic Name Dose Route Start Last Admin Trade Name Freq PRN Reason Stop Dose Admin Hydrocodone Bitart/Acetaminophen 2 tab 12/19/18 16:28 12/20/18 11:06 [place] 5/325 PO 2 tab Q4H PRN Administration Severe Pain (7-10) Aspirin 243 mg 12/20/18 11:00 12/20/18 11:06 Aspirin Chewable PO 12/20/18 13:00 243 mg NOW ANNE MARIE Administration Ezetimibe 10 mg 12/20/18 09:00 12/20/18 08:34 Zetia PO 10 mg DAILY ANNE MARIE Administration Famotidine 20 mg 12/20/18 09:00 12/20/18 11:06 Pepcid PO 20 mg BID ANNE MARIE Administration Fentanyl 50 mcg 12/19/18 16:28 12/19/18 21:30 Sublimaze SLOW IVP 12/21/18 16:21 50 mcg Q2H PRN Administration Severe Pain (7-10) Fluticasone Propionate 1 gm 12/20/18 09:00 12/20/18 08:35 Flonase Nasal [place] NASAL 1 spr DAILY ANNE MARIE Administration Ketorolac Tromethamine 15 mg 12/19/18 18:00 12/20/18 06:02 Toradol IVP 12/24/18 18:01 15 mg Q6HR ANNE MARIE Administration Ondansetron HCl 4 mg 12/19/18 16:28 12/19/18 17:07 Zofran IVP 4 mg Q6H PRN Administration Nausea/Vomiting Sodium Chloride 10 ml 12/20/18 09:13 12/20/18 10:13 Flush - Normal Saline IVF 10 ml PRN PRN Administration Saline Flush - Exam NAD, awake alert Eye: PERRL, anicteric sclera ENT: normocephalic atraumatic, no oropharyngeal lesions Neck: supple, symmetric, no JVD Heart: RRR, no murmur, no gallops, no rubs Respiratory: CTAB, no wheezes, no rales, no ronchi Gastrointestinal: soft, non-tender, non-distended, normal bowel sounds Extremities: no cyanosis, no clubbing, no edema Skin: normal turgor, no lesions, no rashes Neurological: CN's grossly intact, normal sensation to touch, no focal deficits Musculoskeletal: normal tone, normal strength Psychiatric: normal affect, normal behavior, A&O x 3 Hosp A/P (1) Abnormal stress test Status: Acute (2) S/P CABG (coronary artery bypass graft) Code(s): Z95.1 - PRESENCE OF AORTOCORONARY BYPASS GRAFT Status: Acute (3) Anxiety and depression Code(s): F41.9 - ANXIETY DISORDER, UNSPECIFIED; F32.9 - MAJOR DEPRESSIVE DISORDER, SINGLE EPISODE, UNSPECIFIED Status: Chronic (4) CAD (coronary artery disease) Code(s): I25.10 - ATHSCL HEART DISEASE OF [place] CORONARY ARTERY W/O ANG PCTRS Status: Chronic (5) Diabetes type 2, controlled Code(s): E11.9 - TYPE 2 DIABETES MELLITUS WITHOUT COMPLICATIONS Status: Chronic (6) Dyslipidemia Code(s): E78.5 - HYPERLIPIDEMIA, UNSPECIFIED Status: Chronic (7) Hypertension Code(s): I10 - ESSENTIAL (PRIMARY) HYPERTENSION Status: Chronic (8) MIKI (obstructive sleep apnea) Code(s): G47.33 - OBSTRUCTIVE SLEEP APNEA (ADULT) (PEDIATRIC) Status: Chronic (9) Obesity (BMI 30-39.9) Code(s): E66.9 - OBESITY, UNSPECIFIED Status: Chronic - Plan old records reviewed/req continue post cabg treatment protocol vitals stable, blood sugar well controlled discussed with family bedside cardiac rehab medication reviewed as below symptomatic treatment
[2018-12-20] MEDS ORDERED: CEFAZOLIN 2 GM, Admixture Fee 1 EACH in Sodium Chloride 0.9% 100 ML IVPB SCH (12:45)
--- NOTE | 2018-12-20 14:07 | PDOC.CTH ---
Cardiology Progress Note - Subjective The pt seen and examined. No overnight events. No cardiac complaints. He has been up to chair, but no exercise with PT at this moment. - Objective Vital Signs Temp Pulse Resp BP Pulse Ox 12/20/18 10:36 98.8 F 70 16 139/65 96 12/20/18 08:00 98.5 F 12/20/18 07:53 94 L 12/20/18 07:40 94 L 12/20/18 03:00 98.4 F Weight 236 lb 12.423 oz 12/19/18 12/20/18 12/21/18 06:59 06:59 06:59 Intake Total 480 2093 307.4 Output Total 2952 694 6280 Balance -620 1183 -724.6 - Physical Examination General/Neuro: alert & oriented x3 Neck: no JVD present Lungs: CTA (diminished at bases) Heart: RRR Abdomen: soft Extremities: other: (No edema) - Telemetry Telemetry Rhythm: SR - Labs Result Diagrams: 12/20/18 04:40 12/20/18 04:40 - Assessment/Plan 1. CAD with s/p CABG on 12/19/2018 and hx of stent placement in RCA and Lx Cx in past - stable; On Metoprolol, ASA 325mg qd, Statin. 2. HTN - stable 3. HLD - On Crestor 40mg qd 4. DM type 2 - on ACHS BG with SS insulin order 5. Sleep Apnea - 6. Hx of Rt CEA - 7. Ex-smoker, quit in 1975 MAR reviewed Pt. seen and eval. by me. I agree with the A/P by the CHEMIST.Doing well post -op. Chest clear. RRR. [email or web address] Review of Systems - Review of Systems Constitutional: reports: weakness EENTM: reports: no symptoms reported Respiratory: reports: no symptoms reported Cardiac (ROS): reports: no symptoms reported ABD/GI: reports: no symptoms reported : reports: no symptoms reported Musculoskeletal: reports: no symptoms reported
[2018-12-20] MEDS: Rosuvastatin 20 MG TAB PO SCH (20:34)
[2018-12-20] MEDS ORDERED: Atorvastatin Calcium 40 MG TAB PO SCH ×2 (21:00)
[2018-12-20] MEDS ORDERED: Sodium Chloride 0.9% 250 ML IV SCH (22:00)
[2018-12-20 22:27] LABS: Hemoglobin 12.2 g/dL (14.0-18.0); Mean Corpuscular HGB CONC 33.3 g/dL (32.0-36.0); Mean Corpuscular Volume 93.1 fL (78.0-98.0); Mean Platelet Volume 8.1 fL (7.4-10.4); Platelet Count 161 thou/uL (130-400); RBC Distribution Width 11.8 % (11.5-14.5); Red Blood Cell (RBC) Count 3.93 mill/uL (4.70-6.10); White Blood Cell (WBC) Count 14.3 thou/uL (4.8-10.8)
[2018-12-20 22:37] LABS: Lactic Acid 1.3 mmol/L (0.5-2.2)
[2018-12-20 22:39] LABS: Band 15 % (5-11); Lymphocytes 13 % (21-51); MDiff Complete? YES; Monocytes 6 % (0-10); Neutrophil 64 % (42-75); Platelet Morphology Comment Appears Adequate; Reactive Lymphocytes 2 % (0-10)
[2018-12-20 22:41] LABS: Anion Gap 11 mmol/L (10-20); BUN (Urea Nitrogen) 14 mg/dL (8.4-25.7); Calc. Creatinine Clearance 108 mL/min (70-130); Calcium 8.2 mg/dL (7.8-10.44); Carbon Dioxide 24 mmol/L (23-31); Chloride 101 mmol/L (98-107); Estimated GFR-MDRD 78; Glucose 125 mg/dL (83-110); Potassium 4.1 mmol/L (3.5-5.1); Sodium 132 mmol/L (136-145)
[2018-12-21] MEDS: HYDROcodone/Acetaminophen 5/325 mg Tablet PO PRN (04:52)
[2018-12-21] MEDS: Ketorolac Tromethamine 30 MG/ML VIAL IVP SCH ×3 (06:32→18:39)
[2018-12-21] MEDS: Aspirin 325 mg Enteric Coated Tablet PO SCH (10:18)
[2018-12-21] MEDS: Famotidine 20 MG TAB PO SCH ×2 (10:18→22:54)
[2018-12-21] MEDS: Ezetimibe 10 MG TAB PO SCH (10:18)
[2018-12-21] MEDS: Furosemide 20 MG TAB PO SCH ×2 (10:19→13:13)
[2018-12-21] MEDS: Amlodipine 5 MG TAB PO SCH (10:19)
--- NOTE | 2018-12-21 10:33 | PDOC.HOSPP ---
- Subjective Subjective: Patient seen and examined. No new complaints. No overnight events - Objective Vital Signs & Weight: Vital Signs (12 hours) Temp Pulse Resp BP BP Pulse Ox 12/21/18 10:19 76 153/70 H 12/21/18 08:00 98.8 F 76 20 153/70 H 90 L 12/21/18 04:00 98.7 F 75 16 134/61 93 L 12/21/18 00:00 100 F H 77 16 100/51 L 95 Weight Weight 237 lb 3.2 oz Most Recent Monitor Data Heart Rate from ECG 66 NIBP 113/59 NIBP BP-Mean 77 Respiration from ECG 18 SpO2 93 I&O: 12/20/18 12/21/18 12/22/18 06:59 06:59 06:59 Intake Total 2093 1307.4 Output Total 910 1607 Balance 1183 -299.6 Result Diagrams: 12/20/18 22:12 12/20/18 22:12 Additional Labs: Accuchecks 12/21/18 12/20/18 12/20/18 05:53 20:52 16:41 POC Glucose 121 H 142 H 88 12/20/18 12/19/18 12/19/18 11:15 15:27 15:00 POC Glucose 103 135 H 111 H EKG Reviewed by me: Yes ROS - Review of Systems All systems: All other ROS were reviewed and found negative. Constitutional: denies: fever, chills, sweats, weakness, malaise, other Eyes: denies: pain, vision change, conjunctivae inflammation, eyelid inflammation, redness, other ENT: denies: ear pain, ear discharge, nose pain, nose discharge, nose congestion , mouth pain, mouth swelling, throat pain, throat swelling, other Respiratory: denies: cough, dry, shortness of breath, hemoptysis, SOB with excertion, pleuritic pain, sputum, wheezing, other Cardiovascular: denies: chest pain, palpitations, orthopnea, paroxysmal noc. dyspnea, edema, light headedness, other Gastrointestinal: denies: nausea, vomitting, abdominal pain, diarrhea, constipation, melena, hematochezia, other Genitourinary: denies: dysuria, frequency, incontinence, hematuria, retention, other Musculoskeletal: denies: neck pain, shoulder pain, arm pain, back pain, hand pain, leg pain, foot pain, other Skin: denies: rash, lesions, marlene, bruising, other - Medication Medications: Active Medications Generic Name Dose Route Start Last Admin Trade Name Freq PRN Reason Stop Dose Admin Acetaminophen 650 mg 12/19/18 16:28 12/20/18 23:19 Tylenol PO 650 mg Q6H PRN Administration Headache/Fever Or Mild Pain Hydrocodone Bitart/Acetaminophen 1 tab 12/19/18 16:28 12/21/18 04:52 [place] 5/325 PO 1 tab Q4H PRN Administration Moderate Pain (4-6) Hydrocodone Bitart/Acetaminophen 2 tab 12/19/18 16:28 12/20/18 11:06 [place] 5/325 PO 2 tab Q4H PRN Administration Severe Pain (7-10) Amlodipine Besylate 5 mg 12/21/18 09:00 12/21/18 10:19 Norvasc PO 5 mg DAILY ANNE MARIE Administration Aspirin 325 mg 12/21/18 09:00 12/21/18 10:18 Ecotrin PO 325 mg DAILY ANNE MARIE Administration Ezetimibe 10 mg 12/20/18 09:00 12/21/18 10:18 Zetia PO 10 mg DAILY ANNE MARIE Administration Famotidine 20 mg 12/20/18 09:00 12/21/18 10:18 Pepcid PO 20 mg BID ANNE MARIE Administration Fentanyl 50 mcg 12/19/18 16:28 12/19/18 21:30 Sublimaze SLOW IVP 12/21/18 16:21 50 mcg Q2H PRN Administration Severe Pain (7-10) Fluticasone Propionate 1 gm 12/20/18 09:00 12/20/18 08:35 Flonase Nasal [place] NASAL 1 spr DAILY ANNE MARIE Administration Furosemide 40 mg 12/21/18 09:00 12/21/18 10:19 Lasix PO 40 mg 0900,1400 ANNE MARIE Administration Ketorolac Tromethamine 15 mg 12/19/18 18:00 12/21/18 06:32 Toradol IVP 12/24/18 18:01 15 mg Q6HR ANNE MARIE Administration Metoprolol Succinate 25 mg 12/21/18 09:00 12/21/18 10:18 Toprol Xl PO 25 mg DAILY ANNE MARIE Administration Ondansetron HCl 4 mg 12/19/18 16:28 12/19/18 17:07 Zofran IVP 4 mg Q6H PRN Administration Nausea/Vomiting Rosuvastatin Calcium 40 mg 12/20/18 21:00 12/20/18 20:34 Crestor PO 40 mg HS ANNE MARIE Administration Sodium Chloride 10 ml 12/20/18 09:13 12/21/18 10:19 Flush - Normal Saline IVF 10 ml PRN PRN Administration Saline Flush - Exam NAD, awake alert Eye: PERRL, anicteric sclera ENT: normocephalic atraumatic, no oropharyngeal lesions Neck: supple, symmetric, no JVD Heart: RRR, no murmur, no gallops, no rubs (central line in place) Respiratory: CTAB, no wheezes, no rales, no ronchi (surgical site clean) Gastrointestinal: soft, non-tender, non-distended, normal bowel sounds Extremities: no cyanosis, no clubbing, no edema Skin: normal turgor, no lesions, no rashes Neurological: CN's grossly intact, normal sensation to touch, no focal deficits Musculoskeletal: normal tone, normal strength Psychiatric: normal affect, normal behavior, A&O x 3 Hosp A/P (1) Abnormal stress test Status: Acute (2) S/P CABG (coronary artery bypass graft) Code(s): Z95.1 - PRESENCE OF AORTOCORONARY BYPASS GRAFT Status: Acute (3) Anxiety and depression Code(s): F41.9 - ANXIETY DISORDER, UNSPECIFIED; F32.9 - MAJOR DEPRESSIVE DISORDER, SINGLE EPISODE, UNSPECIFIED Status: Chronic (4) CAD (coronary artery disease) Code(s): I25.10 - ATHSCL HEART DISEASE OF [place] CORONARY ARTERY W/O ANG PCTRS Status: Chronic (5) Diabetes type 2, controlled Code(s): E11.9 - TYPE 2 DIABETES MELLITUS WITHOUT COMPLICATIONS Status: Chronic (6) Dyslipidemia Code(s): E78.5 - HYPERLIPIDEMIA, UNSPECIFIED Status: Chronic (7) Hypertension Code(s): I10 - ESSENTIAL (PRIMARY) HYPERTENSION Status: Chronic (8) MIKI (obstructive sleep apnea) Code(s): G47.33 - OBSTRUCTIVE SLEEP APNEA (ADULT) (PEDIATRIC) Status: Chronic (9) Obesity (BMI 30-39.9) Code(s): E66.9 - OBESITY, UNSPECIFIED Status: Chronic - Plan old records reviewed/req continue post cabg treatment as per CV surgery cardiology on case his vitals and blood sugar are well controlled medication reviewed as below symptomatic treatment
[2018-12-21] MEDS: Fluticasone Propionate Nasal Spray 16 gm Bottle NASAL SCH (10:49)
[2018-12-21] MEDS: Insulin Regular 300 UNITS/3 ML VIAL SC PRN ×2 (13:20→22:55)
--- NOTE | 2018-12-21 18:36 | PDOC.CTH ---
Cardiology Progress Note - Subjective The pt seen and examined. No overnight events. No cardiac complaints. He walked with PT x2 today without any cardiac complaints. - Objective Vital Signs Temp Pulse Pulse Pulse Resp BP BP 12/21/18 12:57 88 80 185/78 H 12/21/18 12:45 96.2 F L 78 20 12/21/18 10:57 69 78 150/67 H 12/21/18 10:19 76 153/70 H 12/21/18 08:00 98.8 F 76 20 BP BP Pulse Ox Pulse Ox Pulse Ox 12/21/18 12:57 141/63 H 96 96 12/21/18 12:45 164/91 H 98 12/21/18 10:57 172/77 H 95 96 12/21/18 10:19 12/21/18 08:00 153/70 H 95 Weight 237 lb 3.2 oz 12/20/18 12/21/18 12/22/18 06:59 06:59 06:59 Intake Total 2093 1307.4 Output Total 910 1607 Balance 1183 -299.6 - Physical Examination General/Neuro: alert & oriented x3 Lungs: CTA Heart: RRR Abdomen: soft Extremities: other: (No edema;) - Telemetry Telemetry Rhythm: SR - Labs Result Diagrams: 12/20/18 22:12 12/20/18 22:12 - Assessment/Plan 1. CAD with s/p CABG on 12/19/2018 and hx of stent placement in RCA and Lx Cx in past - stable; On Metoprolol, ASA 325mg qd, Statin. 2. HTN - Cont. elevated with Norvasc 5mg qd and Metoprolol 25mg qd; will start accupril 20mg qd from tonight 3. HLD - On Crestor 40mg qd 4. DM type 2 - on ACHS BG with SS insulin order 5. Sleep Apnea - 6. Hx of Rt CEA - 7. Ex-smoker, quit in 1975 8. ETOH abuse - He has at least 4-6 beers a day; ETOH cassation education given to the pt. However, he does not want to cut down his ETOH amount for now. MAR reviewed * Dr Olguin's pt Pt. seen and eval. by me. I agree with the A/P by the STRATEGIC ACCOUNT MANAGER. He is doing well s/p CABG/ gjm Review of Systems - Review of Systems Constitutional: reports: no symptoms reported EENTM: reports: no symptoms reported Respiratory: reports: no symptoms reported Cardiac (ROS): reports: no symptoms reported ABD/GI: reports: no symptoms reported : reports: no symptoms reported
[2018-12-21] MEDS: Rosuvastatin 20 MG TAB PO SCH (22:54)
[2018-12-21] MEDS: Lisinopril 20 MG TAB PO SCH (22:55)
[2018-12-22] MEDS: Ketorolac Tromethamine 30 MG/ML VIAL IVP SCH ×2 (00:26→05:56)
[2018-12-22] MEDS: metFORMIN 850 MG TAB PO SCH ×2 (08:45→16:56)
[2018-12-22] MEDS: Famotidine 20 MG TAB PO SCH ×2 (08:45→21:18)
[2018-12-22] MEDS: Ezetimibe 10 MG TAB PO SCH (08:45)
[2018-12-22] MEDS: Amlodipine 5 MG TAB PO SCH (08:46)
[2018-12-22] MEDS: Fluticasone Propionate Nasal Spray 16 gm Bottle NASAL SCH (08:46)
[2018-12-22] MEDS: Furosemide 40 MG TAB PO SCH (08:46)
[2018-12-22] MEDS: Aspirin 325 mg Enteric Coated Tablet PO SCH (08:46)
[2018-12-22 10:06] LABS: #Eosinphils 0.5 thou/uL (0.0-0.7); #Lymphocytes 1.6 thou/uL (1.20-3.40); #Monocytes 1.1 thou/uL (0.11-0.59); %Basophils 0.3 % (0.0-1.0); %Eosinophils 4.4 % (0.0-10.0); %Lymphocytes 14.4 % (21.0-51.0); %Monocytes 9.9 % (0.0-10.0); %Neutrophils 70.9 % (42.0-75.0); Hemoglobin 12.4 g/dL (14.0-18.0); Mean Corpuscular HGB CONC 34.1 g/dL (32.0-36.0); Platelet Count 178 thou/uL (130-400); RBC Distribution Width 11.6 % (11.5-14.5); Red Blood Cell (RBC) Count 4.01 mill/uL (4.70-6.10); White Blood Cell (WBC) Count 11.3 thou/uL (4.8-10.8)
[2018-12-22 10:24] LABS: Anion Gap 11 mmol/L (10-20); BUN (Urea Nitrogen) 14 mg/dL (8.4-25.7); Calc. Creatinine Clearance 115 mL/min (70-130); Calcium 9.3 mg/dL (7.8-10.44); Carbon Dioxide 26 mmol/L (23-31); Chloride 103 mmol/L (98-107); Estimated GFR-MDRD 85; Glucose 125 mg/dL (83-110); Potassium 3.7 mmol/L (3.5-5.1); Sodium 136 mmol/L (136-145)
--- NOTE | 2018-12-22 11:06 | PDOC.HOSPP ---
- Subjective Subjective: Patient seen and examined. No new complaints. No overnight events - Objective Vital Signs & Weight: Vital Signs (12 hours) Temp Pulse Resp BP Pulse Ox 12/22/18 08:46 78 12/22/18 08:00 99.2 F 78 18 116/57 L 94 L 12/22/18 04:00 98.0 F 69 20 113/58 L 94 L Weight Weight 233 lb 11.2 oz Most Recent Monitor Data Heart Rate from ECG 66 NIBP 113/59 NIBP BP-Mean 77 Respiration from ECG 18 SpO2 93 I&O: 12/21/18 12/22/18 12/23/18 06:59 06:59 06:59 Intake Total 1307.4 1865 Output Total 1607 2675 Balance -299.6 -810 Result Diagrams: 12/22/18 09:54 12/22/18 09:54 Additional Labs: Accuchecks 12/22/18 12/22/18 12/21/18 10:36 05:35 20:26 POC Glucose 105 106 262 H 12/21/18 12/21/18 16:19 10:58 POC Glucose 118 H 145 H EKG Reviewed by me: Yes ROS - Review of Systems All systems: All other ROS were reviewed and found negative. Constitutional: denies: fever, chills, sweats, weakness, malaise, other Eyes: denies: pain, vision change, conjunctivae inflammation, eyelid inflammation, redness, other ENT: denies: ear pain, ear discharge, nose pain, nose discharge, nose congestion , mouth pain, mouth swelling, throat pain, throat swelling, other Respiratory: denies: cough, dry, shortness of breath, hemoptysis, SOB with excertion, pleuritic pain, sputum, wheezing, other Cardiovascular: denies: chest pain, palpitations, orthopnea, paroxysmal noc. dyspnea, edema, light headedness, other Gastrointestinal: denies: nausea, vomitting, abdominal pain, diarrhea, constipation, melena, hematochezia, other Genitourinary: denies: dysuria, frequency, incontinence, hematuria, retention, other Musculoskeletal: denies: neck pain, shoulder pain, arm pain, back pain, hand pain, leg pain, foot pain, other Skin: denies: rash, lesions, marlene, bruising, other - Medication Medications: Active Medications Generic Name Dose Route Start Last Admin Trade Name Freq PRN Reason Stop Dose Admin Acetaminophen 650 mg 12/19/18 16:28 12/20/18 23:19 Tylenol PO 650 mg Q6H PRN Administration Headache/Fever Or Mild Pain Hydrocodone Bitart/Acetaminophen 1 tab 12/19/18 16:28 12/21/18 04:52 [place] 5/325 PO 1 tab Q4H PRN Administration Moderate Pain (4-6) Hydrocodone Bitart/Acetaminophen 2 tab 12/19/18 16:28 12/20/18 11:06 [place] 5/325 PO 2 tab Q4H PRN Administration Severe Pain (7-10) Amlodipine Besylate 5 mg 12/21/18 09:00 12/22/18 08:46 Norvasc PO 5 mg DAILY ANNE MARIE Administration Aspirin 325 mg 12/21/18 09:00 12/22/18 08:46 Ecotrin PO 325 mg DAILY ANNE MARIE Administration Ezetimibe 10 mg 12/20/18 09:00 12/22/18 08:45 Zetia PO 10 mg DAILY ANNE MARIE Administration Famotidine 20 mg 12/20/18 09:00 12/22/18 08:45 Pepcid PO 20 mg BID ANNE MARIE Administration Fluticasone Propionate 1 gm 12/20/18 09:00 12/22/18 08:46 Flonase Nasal [place] NASAL 1 spr DAILY ANNE MARIE Administration Furosemide 40 mg 12/22/18 09:00 12/22/18 08:46 Lasix PO 40 mg DAILY ANNE MARIE Administration Insulin Human Regular 0 units 12/19/18 16:59 12/21/18 22:55 Humulin R SC 8 unit Q4H PRN Administration POST OP SLIDING SCALE Protocol Lisinopril 20 mg 12/21/18 21:00 12/21/18 22:55 Zestril PO 20 mg HS ANNE MARIE Administration Metformin HCl 850 mg 12/22/18 08:00 12/22/18 08:45 Glucophage PO 850 mg BID-WM ANNE MARIE Administration Metoprolol Succinate 25 mg 12/21/18 09:00 12/22/18 08:46 Toprol Xl PO 25 mg DAILY ANNE MARIE Administration Ondansetron HCl 4 mg 12/19/18 16:28 12/19/18 17:07 Zofran IVP 4 mg Q6H PRN Administration Nausea/Vomiting Rosuvastatin Calcium 40 mg 12/20/18 21:00 12/21/18 22:54 Crestor PO 40 mg HS ANNE MARIE Administration Sodium Chloride 10 ml 12/20/18 09:13 12/22/18 00:26 Flush - Normal Saline IVF 10 ml PRN PRN Administration Saline Flush - Exam NAD, awake alert Eye: PERRL, anicteric sclera ENT: normocephalic atraumatic, no oropharyngeal lesions, dry oral mucosa Neck: supple, symmetric, no JVD, no Thyromegaly Heart: RRR, no murmur, no gallops, no rubs Respiratory: CTAB, no wheezes, no rales, no ronchi Gastrointestinal: soft, non-tender, non-distended, normal bowel sounds Extremities: no cyanosis, no clubbing, no edema Skin: normal turgor, no lesions, no rashes Neurological: CN's grossly intact, normal sensation to touch, no focal deficits Musculoskeletal: normal tone, normal strength, no muscle wasting Psychiatric: normal affect, normal behavior, A&O x 3 Hosp A/P (1) Abnormal stress test Status: Acute (2) S/P CABG (coronary artery bypass graft) Code(s): Z95.1 - PRESENCE OF AORTOCORONARY BYPASS GRAFT Status: Acute (3) Anxiety and depression Code(s): F41.9 - ANXIETY DISORDER, UNSPECIFIED; F32.9 - MAJOR DEPRESSIVE DISORDER, SINGLE EPISODE, UNSPECIFIED Status: Chronic (4) CAD (coronary artery disease) Code(s): I25.10 - ATHSCL HEART DISEASE OF [place] CORONARY ARTERY W/O ANG PCTRS Status: Chronic (5) Diabetes type 2, controlled Code(s): E11.9 - TYPE 2 DIABETES MELLITUS WITHOUT COMPLICATIONS Status: Chronic (6) Dyslipidemia Code(s): E78.5 - HYPERLIPIDEMIA, UNSPECIFIED Status: Chronic (7) Hypertension Code(s): I10 - ESSENTIAL (PRIMARY) HYPERTENSION Status: Chronic (8) MIKI (obstructive sleep apnea) Code(s): G47.33 - OBSTRUCTIVE SLEEP APNEA (ADULT) (PEDIATRIC) Status: Chronic (9) Obesity (BMI 30-39.9) Code(s): E66.9 - OBESITY, UNSPECIFIED Status: Chronic - Plan old records reviewed/req overall doing well after surgery continue cardiac rehab discharge per cardiology medication reviewed as below symptomatic treatment Review of Systems - Medications/Allergies Allergies/Adverse Reactions: Allergies Allergy/AdvReac Type Severity Reaction Status Date / Time No Known Allergies Allergy Verified 12/18/18 11:45 Medications: Current Medications Acetaminophen (Tylenol) 650 mg PO Q6H PRN PRN Reason: Headache/Fever Or Mild Pain Last Admin: 12/20/18 23:19 Dose: 650 mg Hydrocodone Bitart/Acetaminophen ([place] 5/325) 1 tab PO Q4H PRN PRN Reason: Moderate Pain (4-6) Last Admin: 12/21/18 04:52 Dose: 1 tab Hydrocodone Bitart/Acetaminophen ([place] 5/325) 2 tab PO Q4H PRN PRN Reason: Severe Pain (7-10) Last Admin: 12/20/18 11:06 Dose: 2 tab Al Hydroxide/Mg Hydroxide (Maalox) 30 ml PO Q4H PRN PRN Reason: Indigestion Albuterol/Ipratropium (Duoneb) 3 ml NEB I3TY-US PRN PRN Reason: SHORTNESS OF BREATH Alprazolam (Xanax) 0.25 mg PO QIDPRN PRN PRN Reason: Anxiety Amlodipine Besylate (Norvasc) 5 mg PO DAILY [facility] Last Admin: 12/22/18 08:46 Dose: 5 mg Aspirin (Ecotrin) 325 mg PO DAILY [facility] Last Admin: 12/22/18 08:46 Dose: 325 mg Bisacodyl (Dulcolax) 10 mg PO Q12H PRN PRN Reason: Constipation Bisacodyl (Dulcolax) 10 mg [place] Q12H PRN PRN Reason: Constipation Dextrose/Water (Dextrose 50%) 25 gm SLOW IVP PRN PRN PRN Reason: PER HYPOGLYCEMIC PROTOCOL Diphenhydramine HCl (Benadryl) 25 mg PO Q6H PRN PRN Reason: Itching & Insomnia or Cordell Kvng Ezetimibe (Zetia) 10 mg PO DAILY [facility] Last Admin: 12/22/18 08:45 Dose: 10 mg Famotidine (Pepcid) 20 mg PO BID [facility] Last Admin: 12/22/18 08:45 Dose: 20 mg Fluticasone Propionate (Flonase Nasal [place]) 1 gm NASAL DAILY [facility] Last Admin: 12/22/18 08:46 Dose: 1 spr Furosemide (Lasix) 40 mg PO DAILY [facility] Last Admin: 12/22/18 08:46 Dose: 40 mg Glucagon (Glucagon) 1 mg SC PRN PRN PRN Reason: PER HYPOGLYCEMIC PROTOCOL Guaifenesin/Dextromethorphan (Robitussin Dm) 15 ml PO Q4H PRN PRN Reason: Cough Hydralazine HCl (Apresoline) 10 mg SLOW IVP Q6H PRN PRN Reason: To Maintain SBP< 140mmHG Nitroglycerin/Dextrose (Nitroglycerin 50 Mg/250 Ml Bot) 250 mls @ 0 mls/hr IVPB PRN PRN; Protocol PRN Reason: To Maintain SBP< 140mmHG Dextrose/Water (D5w) 1,000 mls @ 0 mls/hr IV INF PRN PRN Reason: PRN HYPOGLYCEMIC PROTOCOL Insulin Human Regular (Humulin R) 0 units SC Q4H PRN; Protocol PRN Reason: POST OP SLIDING SCALE Last Admin: 12/21/18 22:55 Dose: 8 unit Lisinopril (Zestril) 20 mg PO [facility] Last Admin: 12/21/18 22:55 Dose: 20 mg Loratadine (Claritin) 10 mg PO DAILYPRN PRN PRN Reason: Allergies Magnesium Hydroxide (Milk Of Magnesium) 30 ml PO Q12H PRN PRN Reason: Constipation Metformin HCl (Glucophage) 850 mg PO BID-[facility] Last Admin: 12/22/18 08:45 Dose: 850 mg Metoprolol Succinate (Toprol Xl) 25 mg PO DAILY [facility] Last Admin: 12/22/18 08:46 Dose: 25 mg Mineral Oil (Fleet Mineral Oil) 133 ml [place] DAILYPRN PRN PRN Reason: Constipation Morphine Sulfate (Morphine) 2 mg SLOW IVP Q15MIN PRN PRN Reason: Severe Pain (7-10) Nitroglycerin (Nitrostat) 0.4 mg SL Q5MIN PRN PRN Reason: Chest Pain Ondansetron HCl (Zofran) 4 mg IVP Q6H PRN PRN Reason: Nausea/Vomiting Last Admin: 12/19/18 17:07 Dose: 4 mg Rosuvastatin Calcium (Crestor) 40 mg PO [facility] Last Admin: 12/21/18 22:54 Dose: 40 mg Sodium Chloride (Flush - Normal Saline) 10 ml IVF PRN PRN PRN Reason: Saline Flush Last Admin: 12/22/18 00:26 Dose: 10 ml Zolpidem Tartrate (Ambien) 5 mg PO HSPRN PRN PRN Reason: Insomnia
--- NOTE | 2018-12-22 12:11 | OP ---
DATE OF PROCEDURE: 12/19/2018 PREOPERATIVE DIAGNOSIS: Coronary artery disease. PROCEDURE PERFORMED: Coronary artery bypass graft x2, left internal mammary artery good quality to a 2-mm diagonal, saphenous vein graft to a 1.5-mm PDA. CANDLE WRAPPING MACHINE OPERATOR: Tyron Reid MD TRANSFUSION: None. DESCRIPTION OF PROCEDURE: After adequate anesthesia had been obtained, the patient was prepped and draped and I harvested the saphenous vein from just below the left knee to the mid thigh where it ended from previous vein harvesting. Following this, median sternotomy was performed. The right pleura was entered with the saw and closed with suture and later a drain was placed here. The left internal mammary artery was harvested. The mammary divided distally after heparinization and passed posterior to the thymus gland, which was not much of, but a little bit of tissue. Aorta and right atrium were cannulated, and cardiopulmonary bypass begun. Vessels were inspected for grafting. The aorta crossclamped and a liter of cold blood cardioplegia given through the aortic root. Following this, the distal right coronary artery was heavily calcified and the proximal PDA was also calcified. More distally, the PDA was opened and saphenous vein anastomosis completed here. Following completion of this, the LAD system was intramyocardial and felt to be small on preoperative catheterization. The diagonal was quite large and communicated freely with the LAD, so the CHUNG was anastomosed to the LAD prior to its trifurcation. The cross-clamp was removed, partial occluding clamp placed, and a single anastomosis placed on the aortic root and marked with a ring. The vein was somewhat small, but this certainly suitable for the PDA. The patient was then weaned from cardiopulmonary bypass. Cannula was removed and the aortic cannulation site secured with a Prolene. Mediastinal and bilateral pleural drains were placed, taking care to avoid intraabdominal contents from previous surgical interventions. The sternum was then reapproximated with #7 interrupted wire using vancomycin paste on the sternal edges, platelet rich blood and platelet poor plasma. Subcutaneous tissue and skin were closed in layers. Job ID: [id number]
[2018-12-22] MEDS: HYDROcodone/Acetaminophen 5/325 mg Tablet PO PRN (17:02)
[2018-12-22] MEDS: Lisinopril 20 MG TAB PO SCH (21:17)
[2018-12-22] MEDS: Rosuvastatin 20 MG TAB PO SCH (21:17)
[2018-12-23] MEDS: metFORMIN 850 MG TAB PO SCH (09:16)
[2018-12-23] MEDS: Furosemide 40 MG TAB PO SCH (09:16)
[2018-12-23] MEDS: Famotidine 20 MG TAB PO SCH (09:16)
[2018-12-23] MEDS: Amlodipine 5 MG TAB PO SCH (09:16)
[2018-12-23] MEDS: Fluticasone Propionate Nasal Spray 16 gm Bottle NASAL SCH (09:16)
[2018-12-23] MEDS: Aspirin 325 mg Enteric Coated Tablet PO SCH (09:16)
[2018-12-23] MEDS: Ezetimibe 10 MG TAB PO SCH (09:16)
[2018-12-23] MEDS: HYDROcodone/Acetaminophen 5/325 mg Tablet PO PRN (09:19)
--- NOTE | 2018-12-23 11:07 | DIS ---
DATE OF ADMISSION: 12/18/2018 DATE OF DISCHARGE: 12/23/2018 PRIMARY CARE PHYSICIAN: Klaus Evans MD DISCHARGE DISPOSITION: Home. PRIMARY DISCHARGE DIAGNOSES: 1. Abnormal stress test. 2. Coronary artery disease. 3. Status post coronary artery bypass grafting. SECONDARY DISCHARGE DIAGNOSES: Obstructive sleep apnea, obesity with BMI 34, hypertension, dyslipidemia, diabetes type 2, coronary artery disease, and anxiety and depression. PRIMARY PROCEDURE/OPERATION: Cardiac catheterization was performed by Dr. Olguin and the patient was found with 3-vessel CAD. Dr. Altman did CABG x2, central line placement. RADIOLOGICAL INVESTIGATION: The patient had a chest x-ray. SIGNIFICANT LABORATORY DATA: WBC 11.3, hemoglobin 12.4, and platelet 178. INR 1.3. Sodium 136, creatinine 0.88, and calcium 9.3. DISCHARGE MEDICATIONS: 1. Xanax 0.5 mg p.o. at bedtime p.r.n. 2. Amlodipine 5 mg daily. 3. Aspirin 325 mg daily. 4. Vitamin D3 of 2000 units p.o. daily. 5. Pristiq 25 mg p.o. daily. 6. Zetia 10 mg p.o. daily. 7. Flonase nasal spray daily. 8. Metformin 500 p.o. daily. 9. Toprol-XL 25 mg p.o. daily. 10. Multivitamin 1 tablet daily. 11. Seroquel 25 mg p.o. at bedtime. 12. Accupril 40 mg p.o. daily. 13. Crestor 40 mg p.o. daily. CONTRAINDICATION: None. CODE STATUS: Full code. INPATIENT CONSULTANTS: Dr. Olguin was primary while in hospital. Sound Team was consulted for medical comanagement. Dr. Altman was consulted for CABG. TEST RESULTS PENDING ON DISCHARGE: None. ALLERGIES: NO KNOWN DRUG ALLERGIES. DISCHARGE PLAN: Posthospital, the patient has appointment with Dr. Altman on January 06, 2019, at 2 p.m. The patient has appointment with Dr. Olguin on January 12, 2019, at 1:15 p.m. The patient will follow up with cardiac rehab. HOSPITAL COURSE: A 73-year-old male, who has underlying above-mentioned medical problem, who had outpatient stress test which was abnormal. The patient was admitted by Dr. Olguin. The patient underwent cardiac catheterization. The patient had a 3-vessel CAD and he required CABG. During hospital, Sound Team was consulted for medical comanagement. The patient underwent CABG and after CABG, he remained in ICU as per protocol and subsequently, he was transferred back to telemetry floor. Post operation, the patient did very well. He was asymptomatic. He was doing much better. He did not require any placement. He is discharged home with outpatient cardiac rehab. He will continue all his previous medication. Today, the patient is planned for discharge. I have seen and examined the patient at bedside today. REVIEW OF SYSTEMS: All review of systems reviewed with him and negative. PHYSICAL EXAMINATION: Today, VITAL SIGNS: Currently temperature 99.4, pulse 79, respiratory rate 18, saturation 96% on room air, and blood pressure 121/65. Weight 233 pounds. GENERAL: The patient is currently alert and awake, in no obvious acute distress. HEENT: Head; normocephalic and atraumatic. Eyes; pupils are round and reactive to light. LUNGS: Clear to auscultation without any rhonchi or rales. CARDIAC: S1 and S2. Regular without any murmur. ABDOMEN: Soft and benign without any tenderness. EXTREMITIES: No edema. NEUROLOGIC: Nonfocal examination. SKIN: Surgical site is clean and healthy. The patient is stable for discharge from our medical perspective and we will sign off. Job ID: [id number] [facility]
--- NOTE | 2018-12-23 11:29 | PDOC.HOSPP ---
- Subjective Subjective: Patient seen and examined. No new complaints. No overnight events - Objective Vital Signs & Weight: Vital Signs (12 hours) Temp Pulse Resp BP Pulse Ox 12/23/18 09:16 79 12/23/18 07:39 99.4 F 79 18 121/65 96 12/23/18 04:00 99.5 F 74 18 157/77 H 96 Weight Weight 233 lb 1.6 oz Most Recent Monitor Data Heart Rate from ECG 66 NIBP 113/59 NIBP BP-Mean 77 Respiration from ECG 18 SpO2 93 I&O: 12/22/18 12/23/18 12/24/18 06:59 06:59 06:59 Intake Total 1865 1400 Output Total 2675 1550 Balance -810 -150 Result Diagrams: 12/22/18 09:54 12/22/18 09:54 Additional Labs: Accuchecks 12/23/18 12/22/18 12/22/18 05:44 20:16 16:31 POC Glucose 110 84 106 EKG Reviewed by me: Yes ROS - Review of Systems All systems: All other ROS were reviewed and found negative. Eyes: denies: pain, vision change, conjunctivae inflammation, eyelid inflammation, redness, other ENT: denies: ear pain, ear discharge, nose pain, nose discharge, nose congestion , mouth pain, mouth swelling, throat pain, throat swelling, other Respiratory: denies: cough, dry, shortness of breath, hemoptysis, SOB with excertion, pleuritic pain, sputum, wheezing, other Cardiovascular: denies: chest pain, palpitations, orthopnea, paroxysmal noc. dyspnea, edema, light headedness, other Gastrointestinal: denies: nausea, vomitting, abdominal pain, diarrhea, constipation, melena, hematochezia, other Genitourinary: denies: dysuria, frequency, incontinence, hematuria, retention, other Musculoskeletal: denies: neck pain, shoulder pain, arm pain, back pain, hand pain, leg pain, foot pain, other Skin: denies: rash, lesions, marlene, bruising, other - Medication Medications: Active Medications Generic Name Dose Route Start Last Admin Trade Name Freq PRN Reason Stop Dose Admin Acetaminophen 650 mg 12/19/18 16:28 12/20/18 23:19 Tylenol PO 650 mg Q6H PRN Administration Headache/Fever Or Mild Pain Hydrocodone Bitart/Acetaminophen 1 tab 12/19/18 16:28 12/22/18 17:02 [place] 5/325 PO 1 tab Q4H PRN Administration Moderate Pain (4-6) Hydrocodone Bitart/Acetaminophen 2 tab 12/19/18 16:28 12/23/18 09:19 [place] 5/325 PO 2 tab Q4H PRN Administration Severe Pain (7-10) Amlodipine Besylate 5 mg 12/21/18 09:00 12/23/18 09:16 Norvasc PO 5 mg DAILY ANNE MARIE Administration Aspirin 325 mg 12/21/18 09:00 12/23/18 09:16 Ecotrin PO 325 mg DAILY ANNE MARIE Administration Ezetimibe 10 mg 12/20/18 09:00 12/23/18 09:16 Zetia PO 10 mg DAILY ANNE MARIE Administration Famotidine 20 mg 12/20/18 09:00 12/23/18 09:16 Pepcid PO 20 mg BID ANNE MARIE Administration Fluticasone Propionate 1 gm 12/20/18 09:00 12/23/18 09:16 Flonase Nasal [place] NASAL Not Given DAILY ANNE MARIE Furosemide 40 mg 12/22/18 09:00 12/23/18 09:16 Lasix PO 40 mg DAILY ANNE MARIE Administration Insulin Human Regular 0 units 12/19/18 16:59 12/21/18 22:55 Humulin R SC 8 unit Q4H PRN Administration POST OP SLIDING SCALE Protocol Lisinopril 20 mg 12/21/18 21:00 12/22/18 21:17 Zestril PO 20 mg HS ANNE MARIE Administration Metformin HCl 850 mg 12/22/18 08:00 12/23/18 09:16 Glucophage PO 850 mg BID-WM ANNE MARIE Administration Metoprolol Succinate 25 mg 12/21/18 09:00 12/23/18 09:16 Toprol Xl PO 25 mg DAILY ANNE MARIE Administration Ondansetron HCl 4 mg 12/19/18 16:28 12/19/18 17:07 Zofran IVP 4 mg Q6H PRN Administration Nausea/Vomiting Rosuvastatin Calcium 40 mg 12/20/18 21:00 12/22/18 21:17 Crestor PO 40 mg HS ANNE MARIE Administration Sodium Chloride 10 ml 12/20/18 09:13 12/22/18 00:26 Flush - Normal Saline IVF 10 ml PRN PRN Administration Saline Flush - Exam NAD, awake alert Eye: PERRL, anicteric sclera ENT: normocephalic atraumatic, no oropharyngeal lesions Neck: supple, symmetric, no JVD Heart: RRR, no murmur, no gallops Respiratory: CTAB, no wheezes, no rales, no ronchi Gastrointestinal: soft, non-tender, non-distended, normal bowel sounds Extremities: no cyanosis, no clubbing, no edema Skin: normal turgor, no lesions, no rashes Neurological: CN's grossly intact, normal sensation to touch, no focal deficits Musculoskeletal: normal tone, normal strength Psychiatric: normal affect, normal behavior Hosp A/P (1) Abnormal stress test Status: Acute (2) S/P CABG (coronary artery bypass graft) Code(s): Z95.1 - PRESENCE OF AORTOCORONARY BYPASS GRAFT Status: Acute (3) Anxiety and depression Code(s): F41.9 - ANXIETY DISORDER, UNSPECIFIED; F32.9 - MAJOR DEPRESSIVE DISORDER, SINGLE EPISODE, UNSPECIFIED Status: Chronic (4) CAD (coronary artery disease) Code(s): I25.10 - ATHSCL HEART DISEASE OF [place] CORONARY ARTERY W/O ANG PCTRS Status: Chronic (5) Diabetes type 2, controlled Code(s): E11.9 - TYPE 2 DIABETES MELLITUS WITHOUT COMPLICATIONS Status: Chronic (6) Dyslipidemia Code(s): E78.5 - HYPERLIPIDEMIA, UNSPECIFIED Status: Chronic (7) Hypertension Code(s): I10 - ESSENTIAL (PRIMARY) HYPERTENSION Status: Chronic (8) MIKI (obstructive sleep apnea) Code(s): G47.33 - OBSTRUCTIVE SLEEP APNEA (ADULT) (PEDIATRIC) Status: Chronic (9) Obesity (BMI 30-39.9) Code(s): E66.9 - OBESITY, UNSPECIFIED Status: Chronic - Plan old records reviewed/req medication reviewed as below symptomatic treatment see my discharge nawaf
[2018-12-23 12:36] VITALS: BP 113/56; TEMP 99.7
[2018-12-23 14:50] LABS: Actual Bicarbonate (HCO3a) 21.9 mEq/L (22-28); Analyzer IN Cardio OR; Base Excess (BEa) -3.1 mEq/L (-2.0 to +3.0); CO2 Tension 39.1 mmHg (35.0-45.0); Calcium, Ionized 1.15 mmol/L (1.12-1.30); Carboxyhemoglobin (COHb) 0.3 gm% (0.0-3.0); Hemoglobin (Hb) 12.1 g/dL (14.0-18.0); O2 Tension (PaO2) 394.9 mmHg (> 70.0); pH, Arterial 7.37 (7.35-7.45)
[2018-12-23 14:51] LABS: Actual Bicarbonate (HCO3a) 24.9 mEq/L (22-28); Analyzer IN Cardio OR; Base Excess (BEa) -0.7 mEq/L (-2.0 to +3.0); CO2 Tension 44.9 mmHg (35.0-45.0); Calcium, Ionized 1.02 mmol/L (1.12-1.30); Hemoglobin (Hb) 10.4 g/dL (14.0-18.0); O2 Tension (PaO2) 336.9 mmHg (> 70.0); pH, Arterial 7.36 (7.35-7.45)
[2018-12-23 14:51] LABS: Actual Bicarbonate (HCO3a) 21.4 mEq/L (22-28); Analyzer IN Cardio OR; Base Excess (BEa) -3.8 mEq/L (-2.0 to +3.0); CO2 Tension 39.7 mmHg (35.0-45.0); Carboxyhemoglobin (COHb) 0.4 gm% (0.0-3.0); Hemoglobin (Hb) 11.4 g/dL (14.0-18.0); pH, Arterial 7.35 (7.35-7.45)
[2018-12-23 14:54] LABS: Actual Bicarbonate (HCO3a) 21.1 mEq/L (22-28); Analyzer IN Cardio OR; Base Excess (BEa) -3.4 mEq/L (-2.0 to +3.0); CO2 Tension 36.4 mmHg (35.0-45.0); Calcium, Ionized 1.12 mmol/L (1.12-1.30); Carboxyhemoglobin (COHb) 0.6 gm% (0.0-3.0); Hemoglobin (Hb) 13.5 g/dL (14.0-18.0); O2 Tension (PaO2) 401.1 mmHg (> 70.0); Potassium - ABG Lab 4.08 mmol/L (3.70-5.30); pH, Arterial 7.38 (7.35-7.45)
[2018-12-23 14:54] LABS: Actual Bicarbonate (HCO3a) 24.2 mEq/L (22-28); Analyzer IN Cardio OR; Base Excess (BEa) -0.9 mEq/L (-2.0 to +3.0); CO2 Tension 41.7 mmHg (35.0-45.0); Calcium, Ionized 1.18 mmol/L (1.12-1.30); Carboxyhemoglobin (COHb) 0.6 gm% (0.0-3.0); Hemoglobin (Hb) 14.8 g/dL (14.0-18.0); O2 Tension (PaO2) 447.9 mmHg (> 70.0); Potassium - ABG Lab 4.18 mmol/L (3.70-5.30); pH, Arterial 7.38 (7.35-7.45)
[2018-12-23 14:55] LABS: Puncture Site ALINE
[2018-12-23 14:55] LABS: Puncture Site ALINE
[2018-12-23 14:55] LABS: Puncture Site ALINE
[2018-12-23 14:56] LABS: Puncture Site ALINE
[2018-12-23 14:56] LABS: Puncture Site ALINE
--- NOTE | 2018-12-23 15:47 | DIS ---
DATE OF ADMISSION: 12/18/2018 DATE OF DISCHARGE: 12/23/2018 This is a gentleman evaluated by Dr. Casas as an outpatient for clearance for foot surgery and he was found to have an abnormal stress test with a remote history of a circumflex stent. He was found to have critical disease in his LAD and not felt to be stentable. He was taken to the operating room where he underwent coronary artery bypass grafting to an LAD and a PDA. The right coronary artery had an ostial calcified stenosis and then rather diffuse disease calcification throughout. His postoperative course was unremarkable and he will be discharged home today to resume his home medicines plus receive a prescription for [place]. Discharge and followup instructions were given. Job ID: [id number]
== END 2018-12-23 12:49 | disposition home or self-care (01) | DRG 234 ==
LOC: CCL 05:45 → 2NO 10:21 → CCU 12-19 10:38 → 2NO 12-20 10:24
PROVIDERS: ADMIT Internal Medicine Cardiovascular Disease; ATTEND Internal Medicine Cardiovascular Disease
PROC: 4A023N7 Measurement of Cardiac Sampling and Pressure, Left Heart, Percutaneous Approach (ICD-10-PCS; principal; 2018-12-18)
PROC: B2111ZZ Fluoroscopy of Multiple Coronary Arteries using Low Osmolar Contrast (ICD-10-PCS; 2018-12-18)
PROC: 02100Z9 Bypass Coronary Artery, One Artery from Left Internal Mammary, Open Approach (ICD-10-PCS; 2018-12-19)
PROC: 021009W Bypass Coronary Artery, One Artery from Aorta with Autologous Venous Tissue, Open Approach (ICD-10-PCS; 2018-12-19)
PROC: 06BQ4ZZ Excision of Left Saphenous Vein, Percutaneous Endoscopic Approach (ICD-10-PCS; 2018-12-19)
PROC: 5A1221Z Performance of Cardiac Output, Continuous (ICD-10-PCS; 2018-12-19)
DX: I25.10 Atherosclerotic heart disease of native coronary artery without angina pectoris (principal); F41.9 Anxiety disorder, unspecified; F32.9 Major depressive disorder, single episode, unspecified; E11.9 Type 2 diabetes mellitus without complications; I10 Essential (primary) hypertension; E78.5 Hyperlipidemia, unspecified; F10.10 Alcohol abuse, uncomplicated; E78.00 Pure hypercholesterolemia, unspecified; G47.33 Obstructive sleep apnea (adult) (pediatric); Z96.653 Presence of artificial knee joint, bilateral; R94.39 Abnormal result of other cardiovascular function study; E66.9 Obesity, unspecified; Z68.34 Body mass index [BMI] 34.0-34.9, adult; Z98.84 Bariatric surgery status; Z95.5 Presence of coronary angioplasty implant and graft; Z87.891 Personal history of nicotine dependence; I25.2 Old myocardial infarction
CPT/HCPCS: 36415; 36416; 36430; 71045; 80048; 80061; 82805; 83036; 83605; 84145; 85025; 85347; 85610; 85730; 86850; 86900; 86901; 93005; 93010; 93458; 93798; 94760; 99152; 99153; C1769; J0690; J1265; J1642; J1644; J1815; J1885; J1940; J2001; J2150; J2250; J2370; J2405; J2440; J2704; J2720; J3010; J3370; J3475; J3490; J7050; P9045; Q9967; S0017; S0028

== ENCOUNTER 2023-09-29 20:37 | Inpatient (IN) | payer MEDICARE, BC ==
[2023-09-30] MEDS ORDERED: Glucagon 1 MG/ML KIT IM PRN (00:18)
[2023-09-30] MEDS ORDERED: HumaLOG 300 UNITS/3 ML VIAL SC PRN ×2 (00:18)
[2023-09-30] MEDS ORDERED: Acetaminophen 325 MG TAB PO PRN (00:18)
[2023-09-30] MEDS ORDERED: Dextrose 5% in Water 1,000 ML IV PRN (00:18)
[2023-09-30] MEDS ORDERED: Ondansetron ODT 4 MG TAB PO PRN (00:18)
[2023-09-30] MEDS ORDERED: Ondansetron PF 4 MG/2 ML Vial IVP PRN (00:18)
[2023-09-30] MEDS ORDERED: Dextrose 50% Abboject 50 ML SYRINGE SLOW IVP PRN (00:18)
[2023-09-30 00:38] VITALS: BMI 31.4
[2023-09-30] MEDS ORDERED: Lorazepam 2 MG/ML VIAL IM PRN (00:56)
[2023-09-30] MEDS ORDERED: Electrolyte Replacement Protocol 1 EACH FS SCH (01:00)
[2023-09-30] MEDS: cefTRIAXone\\ROCEPHIN 1 GM in Sodium Chloride 0.9% 100 ML IVPB SCH (03:31)
[2023-09-30] MEDS: Thiamine 100 MG TAB PO SCH ×2 (03:31→20:46)
[2023-09-30 06:59] LABS: #Basophils Less than 0.03 10x3/uL (0.0-0.2); %Basophils 0.4 % (0.0-1.0); %Eosinophils 2.6 % (0.0-10.0); %Lymphocytes 19.1 % (21.0-51.0); %Monocytes 10.9 % (0.0-10.0); %Neutrophils 66.6 % (42.0-75.0); Hematocrit 43.4 % (42.0-52.0); Mean Corpuscular HGB CONC 32.3 g/dL (32.0-36.0); Mean Corpuscular Hemoglobin 29.5 pg (27.0-31.0); Mean Corpuscular Volume 91.6 fL (78.0-98.0); Mean Platelet Volume 10.9 fL (7.4-10.4); Platelet Count 169 10x3/uL (130-400); RBC Distribution Width 13.4 % (11.5-14.5); Red Blood Cell (RBC) Count 4.74 mill/uL (4.70-6.10)
[2023-09-30 07:15] LABS: Phosphorus 2.9 mg/dL (2.3-4.7)
[2023-09-30 07:18] LABS: Anion Gap 14 mmol/L (10-20); BUN (Urea Nitrogen) 14 mg/dL (8.4-25.7); Calc. Creatinine Clearance 89 mL/min (70-130); Calcium 8.9 mg/dL (7.8-10.44); Carbon Dioxide 20 mmol/L (23-31); Chloride 109 mmol/L (98-107); Estimated GFR 79; Glucose 84 mg/dL (83-110); Magnesium 1.9 mg/dL (1.6-2.6); Potassium 4.1 mmol/L (3.5-5.1); Sodium 139 mmol/L (136-145)
[2023-09-30] MEDS: Magnesium 2 GM/50 ML(in water) 2 GM in Premix 1 BAG IVPB SCH (08:28)
[2023-09-30] MEDS: Multivit, Therapeutic 1 TAB PO SCH (08:28)
[2023-09-30] MEDS: Folic Acid 1 MG TAB PO SCH (08:28)
[2023-09-30] MEDS: Enoxaparin 40 MG (0.4 mL) SYRINGE SC SCH (08:30)
[2023-09-30] MEDS ORDERED: Electrolyte Replacement Protocol FS PRN (10:00)
[2023-09-30] MEDS: ALPRAZolam 0.25 MG TAB PO PRN (20:46)
[2023-09-30] MEDS: Lorazepam 1 MG TAB PO PRN (23:03)
[2023-10-01] MEDS ORDERED: Lorazepam 1 MG TAB PO PRN (00:56)
[2023-10-01 07:55] VITALS: BP 144/77; TEMP 98.9
[2023-10-01 09:02] LABS: Anion Gap 14 mmol/L (10-20); BUN (Urea Nitrogen) 10 mg/dL (8.4-25.7); Calc. Creatinine Clearance 106 mL/min (70-130); Calcium 8.6 mg/dL (7.8-10.44); Carbon Dioxide 19 mmol/L (23-31); Chloride 108 mmol/L (98-107); Estimated GFR 91; Glucose 70 mg/dL (83-110); Potassium 3.9 mmol/L (3.5-5.1); Sodium 137 mmol/L (136-145)
[2023-10-01 09:11] LABS: #Basophils 0.04 10x3/uL (0.0-0.2); %Basophils 0.7 % (0.0-1.0); %Eosinophils 3.5 % (0.0-10.0); %Monocytes 15.2 % (0.0-10.0); %Neutrophils 51.3 % (42.0-75.0); Hematocrit 41.6 % (42.0-52.0); Hemoglobin 13.4 g/dL (14.0-18.0); Mean Corpuscular HGB CONC 32.2 g/dL (32.0-36.0); Mean Corpuscular Hemoglobin 28.8 pg (27.0-31.0); Mean Corpuscular Volume 89.5 fL (78.0-98.0); Mean Platelet Volume 10.6 fL (7.4-10.4); Platelet Count 177 10x3/uL (130-400); RBC Distribution Width 13.4 % (11.5-14.5); Red Blood Cell (RBC) Count 4.65 mill/uL (4.70-6.10)
[2023-10-02] MEDS ORDERED: Lorazepam 1 MG TAB PO PRN (00:56)
[2023-10-03] MEDS ORDERED: Lorazepam 0.5 MG TAB PO PRN (00:56)
== END 2023-10-01 12:00 | disposition home or self-care (01) | DRG 690 ==
LOC: MSONC 20:37 → INTOOBSV 20:37 → OBSVTOIN 09-30 16:05
PROVIDERS: ADMIT Internal Medicine; ATTEND Internal Medicine
DX: N39.0 Urinary tract infection, site not specified (principal); R78.81 Bacteremia; B96.20 Unspecified Escherichia coli [E. coli] as the cause of diseases classified elsewhere; I10 Essential (primary) hypertension; E78.5 Hyperlipidemia, unspecified; E03.9 Hypothyroidism, unspecified; E11.51 Type 2 diabetes mellitus with diabetic peripheral angiopathy without gangrene; I25.10 Atherosclerotic heart disease of native coronary artery without angina pectoris; Z95.1 Presence of aortocoronary bypass graft; Z79.84 Long term (current) use of oral hypoglycemic drugs; Z79.899 Other long term (current) drug therapy
CPT/HCPCS: 36415; 36416; 80048; 83735; 84100; 85025; 87086; 93005; 93010; 96372; 96374; 96375; G0378; J0696; J1650; J3475; J3490

== ENCOUNTER 2024-06-11 11:43 | Observation (INO) | payer MEDICARE, BC ==
[2024-06-11 13:47] VITALS: BMI 32.1
[2024-06-11] MEDS ORDERED: Acetaminophen 325 MG TAB PO PRN (14:02)
[2024-06-11] MEDS ORDERED: Ondansetron PF 4 MG/2 ML Vial IVP PRN (14:02)
[2024-06-11] MEDS ORDERED: Ketorolac Tromethamine 30 MG (1 mL) VIAL IVP PRN (14:02)
[2024-06-11] MEDS ORDERED: Morphine 2 MG/ML VIAL SLOW IVP PRN (14:07)
[2024-06-11] MEDS: Sodium Chloride 0.9% 1,000 ML IV SCH (14:20)
[2024-06-11] MEDS ORDERED: ALPRAZolam 0.5 MG TAB PO PRN (14:40)
[2024-06-11] MEDS ORDERED: Dextrose 5% in Water 1,000 ML IV PRN (15:28)
[2024-06-11] MEDS ORDERED: Dextrose 50% Abboject 50 ML SYRINGE SLOW IVP PRN (15:28)
[2024-06-11] MEDS ORDERED: Glucagon 1 MG/ML KIT IM PRN (15:28)
[2024-06-11] MEDS ORDERED: Insulin Lispro 100 UNIT/ML 10 ML VIAL SC PRN ×2 (15:28)
[2024-06-11] MEDS ORDERED: Lidocaine 2% PF 5 ML VIAL ONE (16:07)
[2024-06-11] MEDS ORDERED: SUGAMMADEX SODIUM 200 MG/2 ML VIAL ONE (16:08)
[2024-06-11] MEDS ORDERED: Dexamethasone 4 mg/ml Vial ONE (16:08)
[2024-06-11] MEDS ORDERED: Ondansetron PF 4 MG/2 ML Vial ONE (16:08)
[2024-06-11] MEDS ORDERED: Lidocaine 1% PF 5 ML VIAL ONE (16:08)
[2024-06-11] MEDS ORDERED: Rocuronium Bromide 10 MG/ML (10ML VIAL) ONE (16:08)
[2024-06-11] MEDS ORDERED: PROPOFOL 40 ML ONE (16:08)
[2024-06-11] MEDS ORDERED: fentaNYL 50 mcg/mL 1 mL Vial ONE (16:12)
[2024-06-11] MEDS ORDERED: PHENYLEPHRINE-NS 100 MCG/ML 10 ML SYRINGE ONE (17:03)
[2024-06-11] MEDS: Ezetimibe 10 MG TAB PO SCH (20:39)
[2024-06-11] MEDS: Carvedilol 6.25 MG TAB PO SCH (20:39)
[2024-06-11] MEDS: Pregabalin 50 MG CAP PO SCH (20:39)
[2024-06-11] MEDS: Famotidine 20 MG TAB PO SCH (20:39)
[2024-06-11] MEDS: Tamsulosin HCl 0.4 MG CAP PO SCH (20:39)
[2024-06-11] MEDS: Sodium Bicarbonate Tab 325 MG TAB PO SCH (20:39)
[2024-06-12 05:36] LABS: #Basophils Less than 0.03 10x3/uL (0.0-0.2); #Eosinophils Less than 0.03 10x3/uL (0.0-0.7); %Basophils 0.1 % (0.0-1.0); %Lymphocytes 10.2 % (21.0-51.0); %Monocytes 6.1 % (0.0-10.0); %Neutrophils 83.1 % (42.0-75.0); Hematocrit 41.8 % (42.0-52.0); Hemoglobin 13.4 g/dL (14.0-18.0); Mean Corpuscular HGB CONC 32.1 g/dL (32.0-36.0); Mean Corpuscular Hemoglobin 28.3 pg (27.0-31.0); Mean Corpuscular Volume 88.4 fL (78.0-98.0); Mean Platelet Volume 10.5 fL (7.4-10.4); Platelet Count 172 10x3/uL (130-400); RBC Distribution Width 13.4 % (11.5-14.5); Red Blood Cell (RBC) Count 4.73 mill/uL (4.70-6.10)
[2024-06-12 05:49] LABS: Anion Gap 11 mmol/L (10-20); BUN (Urea Nitrogen) 17 mg/dL (8.4-25.7); Calc. Creatinine Clearance 62 mL/min (70-130); Calcium 8.3 mg/dL (7.8-10.44); Carbon Dioxide 21 mmol/L (23-31); Chloride 111 mmol/L (98-107); Estimated GFR 52; Glucose 106 mg/dL (83-110); Potassium 4.8 mmol/L (3.5-5.1); Sodium 138 mmol/L (136-145)
[2024-06-12] MEDS: Aripiprazole 10 MG TAB PO SCH (09:19)
[2024-06-12] MEDS: Rosuvastatin 20 MG TAB PO SCH (09:19)
[2024-06-12] MEDS: cefTRIAXone\\ROCEPHIN 1 GM in Sodium Chloride 0.9% 100 ML IVPB SCH (09:19)
[2024-06-12] MEDS: Aspirin 325 MG TAB PO SCH (09:19)
[2024-06-12] MEDS: Venlafaxine HCl XR 150 MG CAP PO SCH (09:19)
[2024-06-12] MEDS: Losartan 25 MG TAB PO SCH (09:19)
[2024-06-12] MEDS: Finasteride 5 MG TAB PO SCH (09:19)
[2024-06-12] MEDS: Metoprolol Tartrate 25 MG TAB PO SCH (16:56)
[2024-06-12] MEDS: hydrALAZINE 20 MG/ML VIAL SLOW IVP PRN (18:13)
[2024-06-12] MEDS: Famotidine 20 MG TAB PO SCH (21:01)
[2024-06-12] MEDS: ALPRAZolam 0.5 MG TAB PO SCH (21:01)
[2024-06-13] MEDS: Metoprolol Succinate XL 25 MG ER.TAB PO SCH (09:53)
[2024-06-13 11:46] VITALS: TEMP 97.4
[2024-06-13 15:22] VITALS: BP 156/87
== END 2024-06-13 15:22 | disposition home or self-care (01) ==
LOC: MSONC 13:41
PROVIDERS: ADMIT Internal Medicine; ATTEND Internal Medicine Critical Care Medicine
PROC: 0T778DZ Dilation of Left Ureter with Intraluminal Device, Via Natural or Artificial Opening Endoscopic (ICD-10-PCS; principal; 2024-06-11)
DX: N20.2 Calculus of kidney with calculus of ureter (principal); N39.0 Urinary tract infection, site not specified; I25.10 Atherosclerotic heart disease of native coronary artery without angina pectoris; I12.9 Hypertensive chronic kidney disease with stage 1 through stage 4 chronic kidney disease, or unspecified chronic kidney disease; N18.9 Chronic kidney disease, unspecified; E11.22 Type 2 diabetes mellitus with diabetic chronic kidney disease; E78.5 Hyperlipidemia, unspecified; F41.9 Anxiety disorder, unspecified; F32.A Depression, unspecified; N17.9 Acute kidney failure, unspecified; Z95.1 Presence of aortocoronary bypass graft; Z96.653 Presence of artificial knee joint, bilateral; Z87.891 Personal history of nicotine dependence; Z90.89 Acquired absence of other organs; Z79.82 Long term (current) use of aspirin; Z79.84 Long term (current) use of oral hypoglycemic drugs; Z79.85 Long-term (current) use of injectable non-insulin antidiabetic drugs; Z79.2 Long term (current) use of antibiotics; Z79.899 Other long term (current) drug therapy
CPT/HCPCS: 52332; 52351; 74420; 80048; 82962 ×3; 85025; 93005; C1769; C2617 ×2; J0360 ×2; J0696 ×2; J1100; J2405; J2704; J3010; J7030 ×2; 36415; 36416; 93010